=== PATIENT | female | born 1940 | race Caucasian/White ===

== ENCOUNTER 2020-04-05 06:38 | Outpatient (CLI) | payer MEDICARE, SELFPAY ==
--- NOTE | ~2020-04-05 | CT_ITS ---
EXAMINATION: CT abdomen pelvis wo/w con DATE: 04/05/2020 07:45 INDICATION: Breast hematuria TECHNIQUE: Computed tomography (CT) of the abdomen and pelvis was performed without and with 130 cc O mnipaque 350 intravenous contrast. The dose-length product was 815.15 mGy-cm. Automated exposure cont rol and iterative reconstruction technique were employed. COMPARISON: No prior studies for comparison. FINDINGS: Lung bases are unremarkable. No significant pleural or pericardial effusion. Heart size is normal. Small hiatal hernia. There are gallstones. Calcified granulomas of the spleen. No renal/urete ral stones. Nonobstructive bowel gas pattern. Normal appendix. Colonic diverticulosis without evidenc e for diverticulitis. Small fat-containing left inguinal hernia. Bladder is unremarkable. Liver, spleen, pancreas, adrenal glands and kidneys are unremarkable. Ureters are normal in course an d caliber. There is mild thickening of the endometrium. Recommend correlation with ultrasound. IMPRESSION: 1. No acute abdominal abnormality. 2: Thickening of the endometrium. Recommend correlation with ultrasound. 3: Cholelithiasis. Reviewed, dictated and finalized at location A.
--- NOTE | ~2020-04-05 | US_ITS ---
EXAMINATION: US pelvic complete DATE: 04/05/2020 07:57 INDICATION: Postmenopausal bleeding. Comparison:No prior studies for comparison. TECHNIQUE: Multiple transabdominal sonographic images of the pelvis performed. FINDINGS: The uterus measures 6.4 x 4 x 2.6 cm. The endometrial complex measures 8 mm. The ovaries are not visualized. There is no free fluid in the pelvis. There are no abnormal masses seen on either side. IMPRESSION: 1. Thickened endomtrial complex. The differential diagnosis includes endometrial hyperplasia, polyp a nd carcinoma. Biopsy is recommended. Reviewed, dictated and finalized at location A. IMPRESSION: 1. Thickened endomtrial complex. The differential diagnosis includes endometria l hyperplasia, polyp and carcinoma. Biopsy is recommended.
[2020-04-05 07:19] LABS: Estimated Glomerular Filt Rate > 60
== END 2020-04-05 06:39 | disposition home or self-care (01) ==
PROVIDERS: PCP Physician Assistant; Visit Provider Physician Assistant
DX: R31.0 Gross hematuria (principal); N95.0 Postmenopausal bleeding; R93.89 Abnormal findings on diagnostic imaging of other specified body structures; K80.20 Calculus of gallbladder without cholecystitis without obstruction
CPT/HCPCS: 36415; 74178; 76856; Q9967

== ENCOUNTER 2020-04-18 07:17 | Outpatient (CLI) | payer MEDICARE, SELFPAY | END 2020-04-18 07:18 | disposition home or self-care (01) | PROVIDERS: PCP Physician Assistant; Visit Provider Obstetrics & Gynecology | DX: Z01.812 Encounter for preprocedural laboratory examination (principal); N95.0 Postmenopausal bleeding; Z20.828 Contact with and (suspected) exposure to other viral communicable diseases | CPT/HCPCS: 36415; 80048; 87635; 93005; C9803; U0003 ==

== ENCOUNTER 2020-04-18 08:40 | Outpatient (CLI) | payer MEDICARE, SELFPAY ==
--- NOTE | 2020-04-18 08:45 | ECG_ITS ---
Measurements Intervals [place] Rate: 45 P: 39 AL: 205 QRS: -16 QRSD: 90 T: 9 QT: 432 QTc: 377 Interpretive Statements SINUS BRADYCARDIA VOLTAGE CRITERIA FOR LVH DELAYED PRECORDIAL R/S TRANSITION BORDERLINE T WAVE ABNORMALITY- INFERIOR LEADS BASELINE ARTIFACT- I, II, III, AVR, AVL, AVF ABNORMAL ECG Electronically Signed On 04-18-2020 9:23:15 CDT by Isak Hassan D.O.
[2020-04-18 09:38] LABS: Blood Urea Nitrogen 9 mg/dL (7-17); Calcium 9.6 mg/dL (8.4-10.2); Carbon Dioxide 30 mmol/L (22-30); Chloride 104 mmol/L (98-107); Estimated Glomerular Filt Rate > 60; Glucose 124 mg/dL (65-105); Potassium 4.3 mmol/L (3.4-5.0); Sodium 139 mmol/L (137-145)
== END 2020-04-18 08:41 | disposition home or self-care (01) ==
LOC: ANHSURGERY 08:45
PROVIDERS: Anesthesiology; PCP Physician Assistant; Visit Provider Obstetrics & Gynecology
DX: E11.9 Type 2 diabetes mellitus without complications (principal); I10 Essential (primary) hypertension
CPT/HCPCS: 36415; 80048; 93005

== ENCOUNTER 2020-04-23 00:40 | Outpatient (CLI) | payer MEDICARE, SELFPAY ==
[2020-04-23 16:46] LABS: SARS-CoV-2 RNA PCR Negative
== END 2020-04-23 00:41 | disposition home or self-care (01) ==
LOC: ANHCOVIDDT 00:40
PROVIDERS: PCP Physician Assistant; Visit Provider Obstetrics & Gynecology
DX: Z01.818 Encounter for other preprocedural examination (principal); Z11.59 Encounter for screening for other viral diseases; N95.0 Postmenopausal bleeding
CPT/HCPCS: 87635; C9803; U0003

== ENCOUNTER 2020-04-26 00:47 | Day surgery (SDC) | payer MEDICARE, SELFPAY ==
[2020-04-13 14:41] VITALS: BMI 26.9
--- NOTE | 2020-04-14 15:08 | PC.NURSE ---
PT STATES NO CHANGE IN HEALTH HX. NEW DATE AND TIME GIVEN
--- NOTE | 2020-04-20 13:13 | PC.NURSE ---
PT NOTIFIED OF DATE AND TIME CHANGE. NO CHANGE IN HEALTH HX
[2020-04-26 06:12] VITALS: BP 147/65; PULSE 53; RESP 20; TEMP 36.5; O2SAT 98
--- NOTE | 2020-04-26 06:36 | PM.IMHP ---
H&P: HPI History of Present Illness Chief complaint: Post Menopausal Bleeding Narrative: Aubrie Pink is a 80 year old female who presented as a consult. She presented to her PCP w/ vaginal spotting and was found to have a thickened endometrium measuring 8mm with fluid. She reports pink when wiping for the last few days. She has been wearing a pad and also noted a light amount of dark colored discharge. No cramping/pelvic pain. Review of Systems Constitutional: Constitutional: Denies body ache(s) and Denies chills Cardiovascular: Cardiovascular: Denies chest pain and Denies palpitations Respiratory: Respiratory: Denies cough and Denies dyspnea Gastrointestinal: Gastrointestinal: Denies abdominal pain, Denies nausea and Denies vomiting Genitourinary: Genitourinary: Denies dysuria and Denies vaginal discharge Neurologic: Denies headache(s) and Denies numbness Psychiatric: Psychiatric: Denies anxiety Meds Home Medications and Allergies Home Medications Medication Instructions Recorded Confirmed Type amlodipine 2.5 mg PO DAILY 04/13/20 04/20/20 History atorvastatin 20 mg PO HS 04/13/20 04/20/20 History levothyroxine 75 mcg PO DAILY 04/13/20 04/20/20 History lisinopril 40 mg DAILY 04/13/20 04/20/20 History metformin 500 mg PO HS 04/13/20 04/20/20 History nebivolol [Bystolic] 5 mg PO HS 04/13/20 04/20/20 History Allergies Allergy/AdvReac Type Severity Reaction Status Date / Time No Known Allergies Allergy Verified 04/20/20 13:11 Exam Const: General: comfortable and no acute distress Resp: Effort & Inspection: normal respiratory effort Cardio: Rate: regular rate GI: Inspection: non-distended GI Palp: Yes Soft to palpation and No Tenderness to palpation present (GI) : Other: deferred to OR Skin: General skin exam: normal color Neuro: Speech: normal speech Assessment and Plan Assessment and plan (1) Postmenopausal bleeding: Code(s): N95.0 - Postmenopausal bleeding Status: Acute Assessment and Plan: - US showed ET of 8mm w/ possible fluid - Will proceed with HSC/D&C - Will also perform vaginal biopsy due to ulceration/irritation noted - If biopsies negative; will prescribe vaginal estrogen cream
[2020-04-26] MEDS: LACTATED RINGERS 1,000 ML 30 ML IV CONT (06:45)
--- NOTE | 2020-04-26 07:00 | WPDANESEPPF ---
Anes - Initial Pre Proc Eval Procedure: Operation Date: 04/26/20 07:30 Proposed Procedures p Hysteroscopy, Dilation and Curettage - Raine Sam MD Date/Time: 04/26/20 07:00 Surgeon: Raine Sam MD Pre Op Diagnosis: Post Menopausal Bleeding Patient Data Age: 80 Gender: F Height: 5 ft 1 in Weight: 64.5 kg Allergies Allergy/AdvReac Type Severity Reaction Status Date / Time No Known Allergies Allergy Verified 04/20/20 13:11 Home Medications Medication Instructions Recorded Confirmed Type amlodipine 2.5 mg PO DAILY 04/13/20 04/20/20 History atorvastatin 20 mg PO HS 04/13/20 04/20/20 History levothyroxine 75 mcg PO DAILY 04/13/20 04/20/20 History lisinopril 40 mg DAILY 04/13/20 04/20/20 History metformin 500 mg PO HS 04/13/20 04/20/20 History nebivolol [Bystolic] 5 mg PO HS 04/13/20 04/20/20 History Patient hx anesthesia problems: none Family hx anesthesia problems: none [facility] Past Medical History Medical History Diabetes Hyperlipidemia Hypertension Hypothyroid Anes - Eval Final PreProcedure Day of Procedure 04/26/20 07:00 Patient weight: overweight Heart: regular rate and rhythm Lungs: clear to auscultation Airway: Mallampati scale class II Neurological: other (alert) Last oral intake: >/= 8 hours ASA classification: III Emergent: no Anesthetic plan: proceed Anesthesia type and monitoring: general GIVS and standard monitoring Informed Consent: The patient's anesthetic plan and its attendant risks and benefits were discussed with the patient/family/POA. Questions were solicited and answers provided to the satisfaction of the patient/family/POA.
[2020-04-26] MEDS: KETOROLAC 30 MG/ML VIAL (*BKC) IV PUSH (07:28)
[2020-04-26 08:04] VITALS: BP 129/49; PULSE 49; RESP 14; O2SAT 94
--- NOTE | 2020-04-26 08:06 | PM.PROC ---
Procedure Note - Detailed Date of procedure: 04/26/20 Pre-op diagnosis: Post Menopausal Bleeding Post-op diagnosis: same Procedure performed: Hysteroscopy, dilation and curettage and vaginal biopsy Description of procedure: The patient was taken operating room where she was placed under mac sedation. She was then prepped and draped in the usual sterile fashion in the dorsal lithotomy position with her legs in stirrups. A time-out was performed and no antibiotics were indicated. A bivalve speculum was then placed within the vagina and the anterior lip of the cervix was grasped with a single-tooth tenaculum. The cervix was serially dilated to allow for the hysteroscope, the cervix was initially noted to be stenotic. The hysteroscope was advanced inside the uterus and the cavity was easily distended. A polyp arising from the fundus was noted. The hysteroscope was removed. A gentle curettage was performed with return of significant endometrial tissue. All instruments were then removed from the vagina and we proceeded with the vaginal biopsy. Decision was made to biopsy an area on the left labia near the fourchette or at approximately 5 o'clock. Using approximately 3 cc lidocaine without epinephrine the area was numbed. Using pickups and curved mayos a small section of vaginal tissue was removed. Using 3 0 Vicryl on an SH a U-stitch was placed and good hemostasis was noted. Sponge, lap, needle, and instrument counts were correct at the end of the procedure. The patient was awoken from sedation and taken to recovery in a stable condition. Anesthesia: MAC Surgeon: Raine Sam MD Estimated blood loss (mL): 5 Drains: No Packing: No Pathology: yes (endometrial curettings and vaginal biopsy (left labia/fourchette area)) Complications: No immediate complications Condition: stable Disposition: same day Findings: Stenotic cervix, thickened endometrial tissue with a possible fundal polyp/fibroid, vaginal biopsy obtained from the left labia minora/fourchette area (5 o'clock).
[2020-04-26 08:30] VITALS: BP 141/49; PULSE 45; RESP 14; O2SAT 94
[2020-04-26 09:00] VITALS: BP 159/44; PULSE 44; RESP 14
== END 2020-04-26 09:19 | disposition home or self-care (01) ==
PROVIDERS: PCP Physician Assistant; Visit Provider Obstetrics & Gynecology
PROC: 0U5B8ZZ Destruction of Endometrium, Via Natural or Artificial Opening Endoscopic (ICD-10-PCS; CPT 58563; principal; 2020-04-26 07:30)
DX: C54.1 Malignant neoplasm of endometrium (principal); N84.2 Polyp of vagina; I10 Essential (primary) hypertension; E78.5 Hyperlipidemia, unspecified; E11.9 Type 2 diabetes mellitus without complications; E03.9 Hypothyroidism, unspecified; Z79.84 Long term (current) use of oral hypoglycemic drugs
CPT/HCPCS: 58558; 88305; A9270; J1885; J2704; J3010; J7030; J7120

== ENCOUNTER 2020-07-21 10:34 | Outpatient (CLI) | payer MEDICARE, SELFPAY ==
--- NOTE | ~2020-07-21 | PE_ITS ---
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 9.029 mCi of 18-fluorodeoxyglucose (18-FDG) was adminis tered i.v. Low dose computed tomography (CT) images were acquired from the base of the brain to the p roximal thighs for attenuation correction and anatomic localization. Positron emission tomography (PE T) images were acquired in the same distribution beginning 56 minutes after injection. The dose-lengt h product (DLP) was 376.23 mGy-cm. COMPARISON: CT, 04/05/2020 FINDINGS: Head/neck: No abnormal FDG uptake is identified. Minimal FDG activity in the anterior neck musculatur e is likely physiologic given the absence of suspicious CT correlate. Chest: No abnormal FDG uptake is identified. There is mild dependent atelectasis. No focal airspace o pacities are identified. There is no pleural effusion or pneumothorax. No pathologically enlarged tho racic lymph nodes are identified. Cardiomegaly is noted. There is calcified coronary artery atheroscl erosis. Abdomen/pelvis/proximal thighs: No abnormal FDG uptake is identified. Physiologic FDG activity is pre sent in the bowel and urinary tract. There are changes of interval hysterectomy. Stones are present i n the nondistended gallbladder. The liver, spleen, pancreas, and adrenal glands are normal. The kidne ys are unremarkable. No pathologically enlarged abdominal or pelvic lymph nodes are identified. There is no free intraperitoneal gas or evidence of bowel obstruction. Colonic diverticulosis is present w ithout evidence of diverticulitis. There is an approximately 7.0 x 2.3 cm area of complex fluid atten uation in the left pelvis without FDG uptake. Musculoskeletal: No abnormal FDG uptake is identified. There is mild cervical and moderate lumbar spo ndylosis. IMPRESSION: 1. Changes of interval hysterectomy without evidence of metastatic disease. 2. New complex fluid collection of the left pelvis without FDG uptake, most consistent with postsurgi fanny change such as seroma, resolving hematoma, or peritoneal inclusion cyst. Reviewed, dictated and finalized at location A. IMPRESSION: 1. Changes of interval hysterectomy without evidence of metastatic disease. 2. New complex fluid collection of the left pelvis without FDG uptake, most con sistent with postsurgical change such as seroma, resolving hematoma, or periton eal inclusion cyst.
[2020-07-21 11:09] LABS: Glucose Point of Care 114 (65-105)
== END 2020-07-21 10:35 | disposition home or self-care (01) ==
PROVIDERS: PCP Physician Assistant; Visit Provider Internal Medicine Hematology & Oncology
DX: C54.1 Malignant neoplasm of endometrium (principal)
CPT/HCPCS: 78815; A9552

== ENCOUNTER 2020-07-25 00:57 | Outpatient (CLI) | payer MEDICARE, SELFPAY ==
[2020-07-25 19:34] LABS: SARS-CoV-2 RNA PCR Negative
== END 2020-07-25 00:58 | disposition home or self-care (01) ==
LOC: ANHCOVIDDT 00:57
PROVIDERS: PCP Physician Assistant; Visit Provider Internal Medicine Gastroenterology
DX: Z01.812 Encounter for preprocedural laboratory examination (principal); Z20.828 Contact with and (suspected) exposure to other viral communicable diseases
CPT/HCPCS: 87635; C9803; U0003

== ENCOUNTER 2020-07-27 02:52 | Day surgery (SDC) | payer MEDICARE, SELFPAY ==
[2020-07-22 09:43] VITALS: BMI 26.2
--- NOTE | 2020-07-25 14:39 | P.PNAN_ITS ---
Anes - Initial Pre Proc Eval Procedure: Operation Date: 07/27/20 10:30 Proposed Procedures p Colonoscopy - Zeyad Pisano MD Date/Time: 07/25/20 14:39 Surgeon: Zeyad Pisano MD Pre Op Diagnosis: diarrhea Patient Data Age: 80 Gender: F Height: 1.52 m Weight: 61 kg Allergies Allergy/AdvReac Type Severity Reaction Status Date / Time No Known Allergies Allergy Verified 07/27/20 10:33 Home Medications Medication Instructions Recorded Confirmed Type Bystolic 5 mg PO HS 04/13/20 07/22/20 History amlodipine 2.5 mg PO DAILY 04/13/20 07/22/20 History atorvastatin 20 mg PO HS 04/13/20 07/22/20 History levothyroxine 75 mcg PO DAILY 04/13/20 07/22/20 History lisinopril 40 mg DAILY 04/13/20 07/22/20 History metformin 500 mg PO HS 04/13/20 07/22/20 History calcium polycarbophil [FiberCon] 1,250 mg PO BID 07/22/20 07/22/20 History Patient hx anesthesia problems: none Family hx anesthesia problems: none PMFSH Family History Family History (Updated 07/20/20 @ 12:44 by Anish Lara MD) Sibling Cancer Sibling Cancer Father Cancer Social History Social History (System 04/28/20 @ 16:17 by Sarika Biggs) Smoking packs per day: 0.5 Smoking cigarettes per day: 10.0 Years smoked: 1 Smoking pack-years: 0.50 Smoking status: Former smoker Tobacco type: cigarettes Gender identity (if verbalized by the patient): Female Spiritual care concerns: Yes ([employer] [place]) Anes - Eval Final PreProcedure Day of Procedure 07/25/20 14:39 Patient weight: overweight Heart: regular rate and rhythm Lungs: clear to auscultation and normal air movement Airway: Mallampati scale class II Neurological: alert and oriented Last oral intake: >/= 8 hours ASA classification: III Emergent: no Anesthetic plan: proceed Anesthesia type and monitoring: general GIVS and standard monitoring Informed Consent: The patient's anesthetic plan and its attendant risks and benefits were discussed with the patient/family/POA. Questions were solicited and answers provided to the satisfaction of the patient/family/POA.
[2020-07-27 10:35] VITALS: BP 150/65; PULSE 51; RESP 18; TEMP 36.8; O2SAT 99
--- NOTE | 2020-07-27 10:41 | P.CONGI_ITS ---
Assessment and Plan Assessment and plan (1) Chronic diarrhea: Code(s): K52.9 - Noninfective gastroenteritis and colitis, unspecified Status: Acute Assessment and Plan: Patient has chronic diarrhea suspicious for irritable bowel syndrome. Plan is to try fiber supplements. A colonoscopy will be arranged particularly because of history of endometrial cancer. If diarrhea. Persist otherwise stool culture will be obtained and further recommendations subsequently. (2) Endometrial cancer: Code(s): C54.1 - Malignant neoplasm of endometrium Status: Acute GI Consult Note Consult date/time: 07/27/20 10:41 HPI: Aubrie Pink is a 80 year old female Seen in evaluation at the request of EMPERATRIZ Marcelo pt also followed by oncology, Dr Lara. Patient reports having diarrhea for several years. She has a new diagnosis of endometrial cancer for which she underwent a hysterectomy. Her diarrhea appears to be worse after eating. She reports loose stool daily perhaps 3 or 4 day this is improved on taking fiber supplements. She denies any blood in her stools. Diarrhea rarely occurs at night. She has had no weight loss. Family history is noncontributory. she has never had a colonoscopy previously Review of Systems Review of Systems: All systems reviewed & are unremarkable except as noted in HPI and below PMFSH Past Medical History Medical History Diabetes Hyperlipidemia Hypertension Hypothyroid Family History Family History (Updated 07/20/20 @ 12:44 by Anish Lara MD) Sibling Cancer Sibling Cancer Father Cancer Social History Social History Smoking packs per day: 0.5 Smoking cigarettes per day: 10.0 Years smoked: 1 Smoking pack-years: 0.50 Smoking status: Former smoker Tobacco type: cigarettes Gender identity (if verbalized by the patient): Female Spiritual care concerns: Yes ([employer]) Meds Home Medications and Allergies Home Medications Medication Instructions Recorded Confirmed Type Bystolic 5 mg PO HS 04/13/20 07/22/20 History amlodipine 2.5 mg PO DAILY 04/13/20 07/22/20 History atorvastatin 20 mg PO HS 04/13/20 07/22/20 History levothyroxine 75 mcg PO DAILY 04/13/20 07/22/20 History lisinopril 40 mg DAILY 04/13/20 07/22/20 History metformin 500 mg PO HS 04/13/20 07/22/20 History calcium polycarbophil [FiberCon] 1,250 mg PO BID 07/22/20 07/22/20 History Allergies Allergy/AdvReac Type Severity Reaction Status Date / Time No Known Allergies Allergy Verified 07/27/20 10:33 Exam Narrative: Exam Narrative: physical exam reveals patient to be alert. Vital signs stable. HEENT exam unremarkable. She is anicteric. Lungs are clear to auscultation and percussion. Heart is without murmur or extra sounds. Abdominal exam bowel sounds are present soft nontender with no organomegaly. Digital external rectal exam is normal.
[2020-07-27] MEDS: LACTATED RINGERS 1,000 ML 150 ML IV CONT (10:56)
[2020-07-27 11:03] LABS: Glucose Point of Care 112 (65-105)
[2020-07-27 11:32] VITALS: BP 110/45; PULSE 51; RESP 16; O2SAT 97
[2020-07-27 11:43] VITALS: BP 109/45; PULSE 47; RESP 17; O2SAT 96
[2020-07-27 11:53] VITALS: BP 122/52; PULSE 51; RESP 18; O2SAT 98
== END 2020-07-27 12:11 | disposition home or self-care (01) ==
PROVIDERS: PCP Physician Assistant; Visit Provider Internal Medicine Gastroenterology
PROC: 0DJD8ZZ Inspection of Lower Intestinal Tract, Via Natural or Artificial Opening Endoscopic (ICD-10-PCS; CPT 45378; principal; 2020-07-27 10:30)
DX: K52.9 Noninfective gastroenteritis and colitis, unspecified (principal); K57.30 Diverticulosis of large intestine without perforation or abscess without bleeding; K64.8 Other hemorrhoids; C54.1 Malignant neoplasm of endometrium; E11.9 Type 2 diabetes mellitus without complications; I10 Essential (primary) hypertension; E03.9 Hypothyroidism, unspecified; E78.5 Hyperlipidemia, unspecified; Z87.891 Personal history of nicotine dependence; Z79.84 Long term (current) use of oral hypoglycemic drugs; Z79.899 Other long term (current) drug therapy
CPT/HCPCS: 45378; J2704; J7120

== ENCOUNTER 2020-08-26 07:47 | Outpatient (CLI) | payer MEDICARE, SELFPAY ==
[2020-08-26 08:21] LABS: INR 0.9; Prothrombin Time 11.8 Seconds (11.1-14.7)
[2020-08-26 08:22] LABS: Partial Thromboplastin Time 23.8 SECONDS (22.3-36.8)
== END 2020-08-26 07:48 | disposition home or self-care (01) ==
LOC: ANHSURGERY 07:50
PROVIDERS: PCP Physician Assistant; Visit Provider Surgery
DX: C54.1 Malignant neoplasm of endometrium (principal); Z01.812 Encounter for preprocedural laboratory examination
CPT/HCPCS: 36415; 85610; 85730

== ENCOUNTER 2020-08-29 01:06 | Outpatient (CLI) | payer MEDICARE, SELFPAY ==
[2020-08-29 18:01] LABS: SARS-CoV-2 RNA PCR Negative
== END 2020-08-29 01:07 | disposition home or self-care (01) ==
LOC: ANHCOVIDDT 01:08
PROVIDERS: PCP Physician Assistant; Visit Provider Surgery
DX: Z01.812 Encounter for preprocedural laboratory examination (principal); Z20.828 Contact with and (suspected) exposure to other viral communicable diseases
CPT/HCPCS: 87635; C9803; U0003

== ENCOUNTER 2020-08-31 01:27 | Day surgery (SDC) | payer MEDICARE, SELFPAY ==
[2020-08-25 12:32] VITALS: BMI 24.4
--- NOTE | ~2020-08-31 | XR_ITS ---
EXAMINATION: XR fl guide central line place DATE: 08/31/2020 16:18 INDICATION: Port placement. TECHNIQUE: 2 intraoperative fluoroscopic views of the chest were obtained. I was not present. Fluoros copy exposure time was 38 seconds. COMPARISON: PET CT 07/21/2020 FINDINGS: There is a right internal jugular port with tip in right atrium. IMPRESSION: 1. Port tip in right atrium. Reviewed, dictated and finalized at location A.
--- NOTE | ~2020-08-31 | XR_ITS ---
EXAMINATION: XR chest port-a-cath/central DATE: 08/31/2020 16:28 INDICATION: Port placement. TECHNIQUE: A single frontal view of the chest was obtained. COMPARISON: PET/CT 07/21/2020 FINDINGS: There is mild atelectasis in left perihilar region. No pleural effusion or pneumothorax. Th e heart size is normal. Calcified right hilar lymph nodes are consistent with old granulomatous disea se. There is a right internal jugular port with tip in superior vena cava. IMPRESSION: 1. Port tip in superior vena cava. Reviewed, dictated and finalized at location A.
[2020-08-31] MEDS: LACTATED RINGERS 1,000 ML 30 ML IV CONT (11:33)
[2020-08-31] MEDS: KETOROLAC 15 MG/ML VIAL (*BKC) IV PUSH (11:35)
[2020-08-31 11:38] LABS: Glucose Point of Care 98 (65-105)
--- NOTE | 2020-08-31 12:09 | P.PNAN_ITS ---
Anes - Initial Pre Proc Eval Procedure: Operation Date: 08/31/20 14:00 Proposed Procedures p Insertion Juarez Cath - Javad Delgadillo MD Date/Time: 08/31/20 12:09 Surgeon: Javad Delgadillo MD Pre Op Diagnosis: Endometrial Ca Patient Data Age: 80 Gender: F Height: 5 ft Weight: 57.4 kg Allergies Allergy/AdvReac Type Severity Reaction Status Date / Time No Known Allergies Allergy Verified 08/31/20 11:38 Home Medications Medication Instructions Recorded Confirmed Type amlodipine 5 mg PO DAILY 04/13/20 08/31/20 History atorvastatin 20 mg PO HS 04/13/20 08/31/20 History levothyroxine 75 mcg PO DAILY 04/13/20 08/31/20 History lisinopril 40 mg PO BID 04/13/20 08/31/20 History metformin 500 mg PO HS 04/13/20 08/31/20 History calcium polycarbophil [FiberCon] 1,250 mg PO BID 07/22/20 08/31/20 History Laboratory Tests 08/31/20 11:32 POC Capillary Glucose 98 mg/dl mg/dl (65-105) Patient hx anesthesia problems: none Family hx anesthesia problems: none PMFSH Family History Family History (Updated 07/20/20 @ 12:44 by Anish Lara MD) Sibling Cancer Sibling Cancer Father Cancer Social History Social History Smoking packs per day: 0.5 Smoking cigarettes per day: 10.0 Years smoked: 1 Smoking pack-years: 0.50 Smoking status: Never smoker Tobacco type: cigarettes Living arrangements: alone Gender identity (if verbalized by the patient): Female Spiritual care concerns: No Anes - Eval Final PreProcedure Day of Procedure 08/31/20 12:09 Patient weight: normal Heart: regular rate and rhythm Lungs: clear to auscultation Airway: Mallampati scale class II Neurological: alert and oriented Last oral intake: >/= 8 hours ASA classification: III Anesthetic plan: proceed Anesthesia type and monitoring: general GIVS and standard monitoring Informed Consent: The patient's anesthetic plan and its attendant risks and b enefits were discussed with the patient/family/POA. Questions were solicited and answers provided to the satisfaction of the patient/family/POA.
--- NOTE | 2020-08-31 12:18 | PM.HPGS ---
History of Present Illness History of Present Illness Consent: Risks, benefits, and alternatives Of placement of a Port-A-Cath have been discussed and questions answered. Patient agrees to proceed with procedure. Chief complaint: Endometrial Ca Narrative: Aubrie Pink is a 80 year old female who recently had some vaginal bleeding and subsequently a D&C followed by the diagnosis of endometrioid adenocarcinoma. Therefore a in [place] she underwent a total hysterectomy and bilateral salpingo oophorectomy on June 21, 2020. 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 Therefore, she is planning to undergo both radiation and chemotherapy. Dr. Solomon loaiza is her medical oncologist and is planning to proceed with some carboplatin and Taxol once the wrists 3 weeks for 6 cycles. She is referred at this time for placement of a Port-A-Cath. She has had no previous history of surgery on her neck or chest. She is feeling well today without a fever. She is not allergic to any specific medications. Review of Systems Constitutional: Constitutional: Reports no additional constitutional complaints, Reports fatigue and Denies malaise Eyes: Eyes: Denies change in vision and Denies loss of vision ENT: Reports Normal hearing present, Denies change in voice, Denies dizziness, Denies hoarseness and Denies sore throat Cardiovascular: Cardiovascular: Denies chest pain, Denies leg edema and Denies dyspnea Comments: Patient has a history of controlled hypertension on medications. Patient also has history of hyperlipidemia and is on a statin. Respiratory: Respiratory: Denies cough, Denies dyspnea and Denies wheezing Gastrointestinal: Gastrointestinal: Denies hematochezia, Denies change in bowel habits and Denies heartburn Genitourinary: Genitourinary: Denies urinary frequency and Denies urinary incontinence Comments: History of recent RIVER & BSO secondary to endometrial carcinoma. Now planning for chemotherapy and radiation. Neurologic: Reports Normal hearing present, Denies confusion, Denies dizziness, Denies loss of vision, Denies memory loss and Denies seizure-like activity Psychiatric: Psychiatric: Denies confusion, Denies depression and Denies memory loss Endocrine: Endocrine: Denies cold intolerance and Reports fatigue Comments: Patient has a history of controlled type 2 diabetes mellitus on metformin. Hematologic/Lymphatic: Hematologic/Lymphatic: Denies easy bleeding and Denies easy bruising Allergic/Immunologic: Allergic/Immunologic: Denies wheezing PMFSH Past Medical History Medical History (Updated 08/31/20 @ 12:27 by Javad Delgadillo MD) Diabetes Hyperlipidemia Hypertension (Unknown) Hypothyroid Surgical History Surgical History History of hysterectomy with bilateral oophorectomy Family History Family History Sibling Cancer Sibling Cancer Father Cancer Social History Social History Smoking packs per day: 0.5 Smoking cigarettes per day: 10.0 Years smoked: 1 Smoking pack-years: 0.50 Smoking status: Never smoker Tobacco type: cigarettes Living arrangements: alone Gender identity (if verbalized by the patient): Female Spiritual care concerns: No Meds Home Medications and Allergies Home Medications Medication Instructions Recorded Confirmed Type amlodipine 5 mg PO DAILY 04/13/20 08/31/20 History atorvastatin 20 mg PO HS 04/13/20 08/31/20 History levothyroxine 75 mcg PO DAILY 04/13/20 08/31/20 History lisinopril 40 mg PO BID 04/13/20 08/31/20 History metformin 500 mg PO HS 04/13/20 08/31/20 History calcium polycarbophil [FiberCon] 1,250 mg PO BID 07/22/20 08/31/20 History Allergies Allergy/AdvReac Type Severity Reaction Status Date / Time No Known Allergies Allergy Verified 08/31
--- NOTE | 2020-08-31 14:49 | WPDHPUPDATE1 ---
History and Physical Update Update Date/Time: 08/31/20 14:49 History and Physical has been reviewed, including an updated exam of the patient. There are NO changes in the patient's condition. Risks, benefits, and alternatives have been discussed and questions answered. Patient agrees to proceed with procedure.
[2020-08-31] MEDS: ceFAZolin 2 GM/D5W 50 ML 2 GM/50 ML BAG IVPB (15:09)
[2020-08-31] MEDS: HEPARIN SODIUM 5,000 UNITS/ML VIAL 5000 UNITS IRRIGATION (15:48)
[2020-08-31] MEDS: BUPIVACAINE/EPINEPHRINE 0.5% 10 ML VIAL 20 ML INFILTRATE (15:51)
--- NOTE | 2020-08-31 16:07 | PM.PROC ---
Procedure Note - Detailed Date of procedure: 08/31/20 Pre-op diagnosis: Endometrial Ca Post-op diagnosis: same Procedure performed: Ultrasound-guided placement of Port-A-Cath Description of procedure: Patient was seen and marked in the pre-op area prior to coming to the OR. Patient was brought to the operating room. She was placed supine on the operating table and general IV sedation was induced. The nurse service unit operator oil well provided oxygen and IV sedation. Patient's head was carefully turned to the left side while in the supine position and the patient's entire neck and anterior chest on both sides was prepped and draped in the usual sterile fashion. Following this the appropriate time-out was completed confirming procedure and patient. We confirmed that all the needed equipment was present in the room. Following this the ultrasound probe was draped into the field and using the probe we carefully identified the carotid artery and jugular vein on the right neck. I marked the skin directly over the Rt. internal jugular vein and an image was saved to [employer]. Following this, using the continuous ultrasound guidance, a Cook needle was placed through the skin into this vein. I then was able to draw back good dark blood. Once this was completed a guidewire using a J-tip was advanced through the needle and then the needle and the guidewire cover were withdrawn. C-arm fluoroscopy was used to confirm that the guidewire was nicely in the venous system. Once this was confirmed with the C - arm I preceded on by making the pocket for the port on the patient's anterior right chest approximately 3 centimeters below the clavicle overlying the chest wall. Local anesthetic was infiltrated into the skin where there was a transverse incision marked out. Incision was made and we made a pocket inferior to the incision with just a little dissection superior. The low-profile port was tried in the pocket and seemed to fit well. Following this the catheter which had been placed on a tunneling device was tunneled from the port site on the anterior right chest up to the right neck where a small incision had been made with an #11 blade knife. Then the catheter was pulled through so that we would have 15 centimeters to put into the central venous system once the dilation took place. Following this we placed the dilator and sheath over the guidewire in the jugular vein and carefully dilated the tract into the central venous system. The guidewire and dilator were then removed, carefully covering the end of the sheath to prevent air embolus. The end of the catheter which had been cut off straight across and the tip checked was then inserted into the sheath and into the neck. I then carefully pulled the 2 arms of the tear-away sheath away as the materials assistant held the catheter in position with a DeBakey forceps. Following this we checked the position of the catheter with C-arm fluoroscopy confirming that the tip seemed to be in the distal superior vena cava near the junction with the right atrium. I felt that it was in good position and so the rest of the catheter was pulled down toward the feet into the port site. We then measured to the appropriate position to cut the catheter to attach it to the port stem. Then the connector sealing device for the catheter port was placed onto the catheter and then the catheter cut to the appropriate length and inserted onto the stem of the port. Then the connector was advanced onto the stem over the catheter sealing it to the port. A single 3- 0 Prolene suture was also used during this to suture the connector to the port and to the underlying musculature. Following this at one other site the port was sutured to the underlying musculature with the 3-0 Proline. Both prior to connecting the catheter to the port and then using a straight Marvin needle following this connection, the port was aspirated of good dark blood and flushed with heparinized saline to keep the c
[2020-08-31 16:14] VITALS: BP 117/50; PULSE 61; RESP 12; O2SAT 97
[2020-08-31 16:35] VITALS: BP 149/66; PULSE 65; RESP 16
[2020-08-31 16:36] LABS: Glucose Point of Care 105 (65-105)
--- NOTE | 2020-08-31 16:49 | SUR.PHASEII ---
1625 chest xray done,dr crowley saw xray and in proper placement without pneumothorax.
[2020-08-31 17:00] VITALS: BP 142/58; PULSE 64; RESP 16
== END 2020-08-31 17:20 | disposition home or self-care (01) ==
PROVIDERS: PCP Physician Assistant; Referring Provider Internal Medicine Hematology & Oncology; Visit Provider Surgery
PROC: (CPT 36561; principal; 2020-08-31 14:00)
DX: C54.1 Malignant neoplasm of endometrium (principal); Z90.710 Acquired absence of both cervix and uterus; Z90.79 Acquired absence of other genital organ(s); Z90.722 Acquired absence of ovaries, bilateral; E11.9 Type 2 diabetes mellitus without complications; E78.5 Hyperlipidemia, unspecified; I10 Essential (primary) hypertension; E03.9 Hypothyroidism, unspecified; Z80.9 Family history of malignant neoplasm, unspecified; Z87.891 Personal history of nicotine dependence; Z79.84 Long term (current) use of oral hypoglycemic drugs
CPT/HCPCS: 36561; 77001; C1788; J0690; J1644; J1885; J2405; J2704; J3010; J7030; J7120

== ENCOUNTER 2020-12-23 07:43 | Outpatient (CLI) | payer MEDICARE, SELFPAY ==
--- NOTE | ~2020-12-23 | CT_ITS ---
EXAMINATION: CT brain wo/w con EXAM DATE: 12/23/2020 08:20 INDICATION: Altered mental status, unspec. Uterine cancer. Status post chemotherapy and radiation. TECHNIQUE: Spiral CT of the head was performed without contrast. Axial, coronal and sagittal images were reviewed. Patient was then injected with 100 cc Omnipaque 350 intravenous contrast and reimaged. Postcontrast axial, coronal, sagittal reformatted images reviewed. The dose-length product (DLP) f or this examination was 1059.33 mGy-cm. The exposure was tailored according to patient size, and ite rative reconstruction (ASIR) was used as additional dose reduction technique. There is no prior stud y for comparison. FINDINGS: There is no acute intraparenchymal hemorrhage. No evidence of intraparenchymal brain mass lesion. No evidence of acute infarction. Please note that initial head CT has limited sensitivity f or small or acute infarctions. There is moderate periventricular and subcortical hypodensity, nonspec ific but probably related to small vessel ischemic disease. There is mild prominence of the sulci a nd ventricles related to cerebral atrophy. There is intracranial carotid arteriosclerosis. There a re no extra-axial collections. There is no mass effect or midline shift. Patient has had bilateral ocular lens surgery. Soft tissue is unremarkable. The visualized sinuses and mastoid air cells are well aerated. IMPRESSION: 1. No acute intracranial findings or metastatic disease. 2. Chronic age related findings. Reviewed, dictated and finalized at location A. ET CASTER
== END 2020-12-23 07:44 | disposition home or self-care (01) ==
PROVIDERS: Family Provider Internal Medicine; PCP Physician Assistant; Visit Provider Internal Medicine Hematology & Oncology
DX: R41.82 Altered mental status, unspecified (principal)
CPT/HCPCS: 70470; Q9967

== ENCOUNTER 2021-02-09 11:56 | Outpatient (CLI) | payer MEDICARE, SELFPAY ==
[2021-02-09 16:36] LABS: Alanine Aminotransferase 9 U/L (4-35); Albumin Level 3.4 g/dL (3.5-5.1); Alkaline Phosphatase 42 U/L (38-126); Anion Gap 4 mmol/L (8-16); Aspartate Amino Transferase 16 U/L (14-36); Bilirubin,Total 0.5 mg/dL (0.2-1.3); Blood Urea Nitrogen 18 mg/dL (7-17); Calcium 8.9 mg/dL (8.4-10.2); Carbon Dioxide 27 mmol/L (22-30); Chloride 108 mmol/L (98-107); Cholesterol 195 mg/dL (0-200); Estimated Glomerular Filt Rate 60; Glucose 134 mg/dL (65-105); HDL Direct 44 mg/dL; Potassium 4.7 mmol/L (3.4-5.0); Sodium 139 mmol/L (137-145); Triglycerides 174 mg/dL (<150)
[2021-02-09 16:47] LABS: LDL Cholesterol Direct 120 mg/dL
[2021-02-09 16:59] LABS: Hemoglobin A1C 5.5 % (<5.7)
[2021-02-09 17:25] LABS: Free T4 Free Thyroxine 1.06 ng/mL (0.78-2.19)
== END 2021-02-09 11:57 | disposition home or self-care (01) ==
LOC: ANHLAB 11:59
PROVIDERS: PCP Physician Assistant; Visit Provider Physician Assistant
DX: E03.9 Hypothyroidism, unspecified (principal); E78.2 Mixed hyperlipidemia; E11.9 Type 2 diabetes mellitus without complications; Z79.899 Other long term (current) drug therapy
CPT/HCPCS: 36415; 80048; 80061; 80076; 83036; 84439; 84443

== ENCOUNTER 2021-04-03 10:33 | Outpatient (CLI) | payer MEDICARE, SELFPAY ==
--- NOTE | ~2021-04-03 | CT_ITS ---
EXAMINATION: CT abdomen pelvis w con EXAM DATE: 04/03/2021 11:13 INDICATION: Endometrial cancer. TECHNIQUE: Spiral CT of the abdomen and pelvis was performed following intravenous injection of 100 m L Omnipaque 350. Axial, coronal and sagittal images of the abdomen and pelvis were reviewed. The do se-length product (DLP) for this examination was 250.16 mGy-cm. The exposure was tailored according to patient size (auto mA exposure control), and iterative reconstruction (ASIR) was used as additiona l dose reduction technique. Correlation is made to head CT 04/05/2020. FINDINGS: The liver, spleen, adrenal glands and pancreas are unremarkable. Punctate cholelithiasis v ersus small amount of gallbladder sludge. Portal and splenic veins are patent. Kidneys enhance symm etrically. There is no hydronephrosis. The uterus is not identified and has likely been surgically resected. Resolution of previously seen left-sided pelvic focal fluid pockets which could've been po stoperative seromas. The bladder is unremarkable. There is no retroperitoneal or pelvic lymphadenop athy. Small left inguinal fat-containing hernia. Mild scattered aortic arterial sclerosis. The appendix is normal. Nonspecific presacral edema, could be radiation related change if there is green ch history. There is mild scattered colonic diverticulosis. There is no adjacent inflammatory change to suggest diverticulitis. There is small sliding gastroesophageal hiatal hernia. There is expected amount of colonic stool. No free intraperitoneal gas. The heart is normal in size. There are no pericardial or pleural effusions. The lung bases are unremarkable. There are no osteoblastic or os teolytic lesions identified. IMPRESSION: 1. No evidence of metastatic disease. 2. Resolution of previously seen left pelvic fluid pockets. 3. Development of presacral edema, nonspecific. 4. Mild scattered colonic diverticulosis. 5. Small hiatal hernia. 6. Possible punctate cholelithiasis. Reviewed, dictated and finalized at location B.
== END 2021-04-03 10:34 | disposition home or self-care (01) ==
PROVIDERS: PCP Physician Assistant; Visit Provider Internal Medicine Hematology & Oncology
DX: C54.1 Malignant neoplasm of endometrium (principal); K57.30 Diverticulosis of large intestine without perforation or abscess without bleeding; K44.9 Diaphragmatic hernia without obstruction or gangrene
CPT/HCPCS: 74177; Q9967

== ENCOUNTER 2021-09-29 09:19 | Outpatient (CLI) | payer MEDICARE, SELFPAY ==
--- NOTE | ~2021-09-29 | CT_ITS ---
EXAMINATION: CT abdomen pelvis w con INDICATION: Endometrial cancer TECHNIQUE: Computed tomographic images of the abdomen and pelvis were obtained after the administrati on of 100 cc of Omnipaque 350 intravenous contrast. The dose-length product (DLP) was 235.74 mGy-cm. Automated exposure control and iterative reconstruction technique were employed. COMPARISON: 04/03/2021, 07/21/2020 FINDINGS: Minimal dependent atelectasis is present in the lung bases. The heart size is normal. The l iver, spleen, pancreas, and adrenal glands are normal. Stones are present in the nondistended gallbla dder. The kidneys are unremarkable. No pathologically enlarged abdominal or pelvic lymph nodes are id entified. There is no free intraperitoneal gas or evidence of bowel obstruction. There is calcified a therosclerosis of the aorta and many of the other arteries. The appendix is normal. A small pelvic fl uid collection continues to decrease in size. There is a left inguinal hernia containing fat. Changes in the sacrum are likely due to pelvic radiation. There are insufficiency fractures in the bilateral sacral ala. IMPRESSION: 1. No evidence of metastatic disease. 2. Sacral insufficiency fractures. 3. Cholelithiasis without evidence of cholecystitis. Reviewed, dictated and finalized at location A.
[2021-09-29 09:53] LABS: Estimated Glomerular Filt Rate 60
== END 2021-09-29 09:20 | disposition home or self-care (01) ==
LOC: ANHIMG 09:23
PROVIDERS: PCP Physician Assistant; Visit Provider Internal Medicine Hematology & Oncology
DX: C54.1 Malignant neoplasm of endometrium (principal); K80.20 Calculus of gallbladder without cholecystitis without obstruction
CPT/HCPCS: 74177; Q9967

== ENCOUNTER 2022-04-26 08:56 | Outpatient (CLI) | payer MEDICARE, SELFPAY ==
--- NOTE | ~2022-04-26 | CT_ITS ---
EXAMINATION: CT abdomen pelvis w con DATE: 04/26/2022 09:25 INDICATION: Endometrial cancer. TECHNIQUE: Computed tomography (CT) of the abdomen and pelvis was performed with 75 mL Omnipaque 300 intravenous contrast. Automated exposure control and iterative reconstruction technique were employed . The dose-length product was 261.31 mGy-cm. COMPARISON: CT abdomen and pelvis 09/29/2021 FINDINGS: The visualized portions of the lung bases demonstrate mild atelectasis. No pleural effusion . There is left atrial enlargement of the heart. No pericardial effusion. There are coronary artery c alcifications. The liver is normal. There are gallstones in the gallbladder, which is normal in size. Calcifications in the spleen are consistent with old granulomatous disease. The pancreas and adrenal glands are normal. There is cortical thinning of the kidneys. There are bilateral inguinal hernias c ontaining fat. There is diverticulosis of the colon without evidence of diverticulitis. There are no dilated loops of bowel. The appendix is normal. There is a small sliding hiatal hernia. There are no pathologically enlarged lymph nodes. There is no free intraperitoneal fluid. There are old healed sac ral insufficiency fractures. There is severe lumbar spondylosis. IMPRESSION: 1. No evidence of metastatic disease. Reviewed, dictated and finalized at location A.
[2022-04-26 09:21] LABS: Estimated Glomerular Filt Rate 60
== END 2022-04-26 08:57 | disposition home or self-care (01) ==
PROVIDERS: PCP Physician Assistant; Visit Provider Internal Medicine Hematology & Oncology
DX: C54.1 Malignant neoplasm of endometrium (principal)
CPT/HCPCS: 74177; Q9967

== ENCOUNTER 2022-11-02 07:10 | Outpatient (CLI) | payer MEDICARE, SELFPAY ==
--- NOTE | ~2022-11-02 | CT_ITS ---
EXAMINATION: CT abdomen pelvis w con DATE: 11/02/2022 07:44 INDICATION: Endometrial cancer restaging TECHNIQUE: Computed tomography (CT) of the abdomen and pelvis was performed with 100 CC Omnipaque 350 intravenous contrast. Automated exposure control and iterative reconstruction technique were employe d. Exam dose: 370.59 mGy-cm total exam DLP. COMPARISON: 04/26/2022 CT abdomen pelvis FINDINGS: The lung bases are clear. Borderline heart size. Both no pericardial or pleural effusion. There are multiple small stones in the dependent aspect of the gallbladder. No gallbladder wall thick ening or pericholecystic fluid or fat stranding. No bile duct or pancreatic duct dilatation. No hepatic, splenic, pancreatic, adrenal or renal space-occupying mass lesion is detected. There is a therosclerotic calcification of the abdominal aorta prominent calcification at the origins of the elaina iac and superior mesenteric and left renal arteries. No abdominal aortic aneurysm. No intraperitoneal or retroperitoneal or pelvic mass lesion or adenopathy or ascites. The urinary bladder is relatively evacuated which may account for moderate thickness of the urinary b ladder wall. Small sliding hiatal hernia. Diverticulosis of the sigmoid and descending colon; no CT evidence of diverticulitis. Normal appendix . No bowel obstruction, bowel wall thickening, pneumatosis or intraperitoneal free air is detected. There is minimal free fluid in the dependent pelvis. Status post hysterectomy. Degenerative spurring of the lower thoracic spine. Moderately severe degenerative disc disease at L3- 4. Degenerative changes apophyseal joints with associated minimal grade 1 anterolisthesis at L4-5. Bilateral hip osteoarthritis. IMPRESSION: Status post hysterectomy No abdominal or pelvic mass lesion or adenopathy Cholelithiasis Diverticulosis of the colon Reviewed, dictated and finalized at Location A. Reviewed, dictated and finalized at location B. 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
[2022-11-02 07:40] LABS: Estimated Glomerular Filt Rate 53
== END 2022-11-02 07:11 | disposition home or self-care (01) ==
PROVIDERS: PCP Physician Assistant; Visit Provider Internal Medicine Hematology & Oncology
DX: C54.1 Malignant neoplasm of endometrium (principal); K57.30 Diverticulosis of large intestine without perforation or abscess without bleeding; K80.20 Calculus of gallbladder without cholecystitis without obstruction
CPT/HCPCS: 74177; Q9967

== ENCOUNTER 2023-03-21 02:03 | Day surgery (SDC) | payer MEDICARE, SELFPAY ==
[2023-03-14 14:40] VITALS: BMI 27.4
[2023-03-21 09:45] VITALS: BP 184/76; PULSE 56; RESP 16; TEMP 36.6; O2SAT 98
[2023-03-21 10:01] VITALS: BMI 27.0
[2023-03-21] MEDS: LACTATED RINGERS 1,000 ML 150 ML IV CONT (10:11)
--- NOTE | 2023-03-21 10:32 | P.HP_ITS ---
History of Present Illness History of Present Illness Consent: Risks, benefits, and alternatives have been discussed and questions answered. Patient agrees to proceed with procedure. Chief complaint: BRBPR Narrative: Aubrie Pink is a 83 year old female Referred for colonoscopy because of rectal bleeding. Patient has noticed bright red blood per rectum that occurred briefly. For several days. His subsequently stopped. She denies any abdominal or rectal pain. Patient reports prior colonoscopy 2020 that revealed internal hemorrhoids. She has no known history of polyps or cancer in the family. Review of Systems Review of Systems: Review of systems noncontributory. [facility] Past Medical History Medical History (Updated 03/21/23 @ 10:34 by Zeyad Pisano MD) Diabetes Hyperlipidemia Hypertension (Unknown) Hypothyroid Surgical History Surgical History (Updated 09/02/20 @ 11:36 by Anish EnnisMD) History of hysterectomy with bilateral oophorectomy Family History Family History Sibling Cancer Sibling Cancer Father Cancer Social History Social History Smoking packs per day: 0.5 Smoking cigarettes per day: 10.0 Years smoked: 1 Smoking pack-years: 0.50 Smoking status: Former smoker Tobacco type: cigarettes Substance use type: does not use Living arrangements: alone Gender identity (if verbalized by the patient): Female Spiritual care concerns: No Meds Home Medications and Allergies Home Medications Medication Instructions Recorded Confirmed Type sodium,potassium,mag sulfates 17.5 See Rx Instructions PO .COMPLEX 02/28/23 03/21/23 Rx gram-3.13 gram-1.6 gram oral soln #354 mL (Suprep Bowel Prep Kit) Allergies Allergy/AdvReac Type Severity Reaction Status Date / Time No Known Allergies Allergy Verified 03/21/23 09:59 Exam Narrative: Physical exam reveals patient to be alert. Vital signs stable. HEENT exam is unremarkable. Patient is anicteric. Lungs are clear to auscultat ion and percussion. Heart is without murmur or extra sounds. Abdomen bowel sounds are present soft nontender with no organomegaly. Digital external rectal exam is normal. Assessment and Plan Assessment and plan (1) Rectal bleeding: Code(s): K62.5 - Hemorrhage of anus and rectum Status: Acute Assessment and Plan: Patient with episodes of rectal bleeding. She has of a colonoscopy within the last several years that showed internal hemorrhoids raising this is a likely possibility for the bleeding. High-fiber diet is advised. A colonoscopy has been scheduled. Further recommendations will be given after endoscopy. High- fiber diet advised. (2) Endometrial cancer: Onset Date: ~05/2020 Code(s): C54.1 - Malignant neoplasm of endometrium Status: Acute
[2023-03-21] MEDS: SIMETHICONE ORAL SUSPENSION 20 MG/0.3 ML 30 ML BOTTLE 0.6 ML IRRIGATION (10:48)
[2023-03-21 10:56] VITALS: BP 133/62; PULSE 50; RESP 20; O2SAT 97
[2023-03-21 11:06] VITALS: BP 159/73; PULSE 47; RESP 26; O2SAT 99
[2023-03-21 11:16] VITALS: BP 168/72; PULSE 48; RESP 18; O2SAT 98
== END 2023-03-21 11:26 | disposition home or self-care (01) ==
PROVIDERS: PCP Physician Assistant; Visit Provider Internal Medicine Gastroenterology
PROC: 0DJD8ZZ Inspection of Lower Intestinal Tract, Via Natural or Artificial Opening Endoscopic (ICD-10-PCS; CPT 45378; principal; 2023-03-21 11:00)
DX: K64.8 Other hemorrhoids (principal); K57.30 Diverticulosis of large intestine without perforation or abscess without bleeding; I10 Essential (primary) hypertension; E78.5 Hyperlipidemia, unspecified; E11.9 Type 2 diabetes mellitus without complications; E03.9 Hypothyroidism, unspecified; Z87.891 Personal history of nicotine dependence; Z85.42 Personal history of malignant neoplasm of other parts of uterus
CPT/HCPCS: 45378; J2704; J7120

== ENCOUNTER 2023-05-09 08:53 | Outpatient (CLI) | payer MEDICARE, SELFPAY ==
--- NOTE | ~2023-05-09 | CT_ITS ---
EXAMINATION: CT abdomen pelvis w con DATE: 05/09/2023 09:46 INDICATION: Endometrial cancer restaging TECHNIQUE: Computed tomography (CT) of the abdomen and pelvis was performed with 100 CC Omnipaque 350 intravenous contrast material intravenous contrast. Automated exposure control and iterative reconst ruction technique were employed. Exam dose: 307.98 mGy-cm total exam DLP. COMPARISON: 11/02/2022 CT abdomen pelvis FINDINGS: The lung bases are clear. Cardiomegaly. Coronary artery calcification. No pericardial or pl eural effusion. Small sliding hiatal hernia. Diffuse hepatic steatosis. Small gallstones or sludge at the dependent aspect of the gallbladder. No gallbladder wall thickening or pericholecystic fluid or fat stranding. No bile duct or pancreatic duct dilatation. No pancreatic mass lesion or calcification. Normal splenic size. Normal morphology of the adrenal glands. No renal mass lesion or urinary tract calculus or hydroureteronephrosis. The urinary bladder is unrem arkable. Status post hysterectomy. Normal caliber in atherosclerosis of the abdominal aorta. No intraperitoneal or retroperitoneal or pe lvic mass lesion or adenopathy or ascites. Normal appendix. There are diverticula of the left and right colon, most frequently in the sigmoid re gion. There is no evidence of diverticulitis. No bowel obstruction, bowel wall thickening, pneumatosi s or intraperitoneal free air is detected. Bilateral fat-containing inguinal hernias. Minimal free fluid in the dependent pelvis. No suspicious osteolytic or osteoblastic lesions are noted. Degenerative changes of the thoracic and lumbar spine and both hips. IMPRESSION: Diverticulosis of the colon; no CT evidence of diverticulitis Normal appendix Small sliding hiatal hernia Cholelithiasis Hepatic steatosis Status post hysterectomy; no evidence of recurrent or metastatic malignancy Reviewed, dictated and finalized at Location A. Reviewed, dictated and finalized at location L.
[2023-05-09 09:29] LABS: Estimated Glomerular Filt Rate 60
== END 2023-05-09 08:54 | disposition home or self-care (01) ==
PROVIDERS: PCP Physician Assistant; Visit Provider Internal Medicine Hematology & Oncology
DX: C54.1 Malignant neoplasm of endometrium (principal); K44.9 Diaphragmatic hernia without obstruction or gangrene; K80.20 Calculus of gallbladder without cholecystitis without obstruction; K76.0 Fatty (change of) liver, not elsewhere classified; K57.30 Diverticulosis of large intestine without perforation or abscess without bleeding
CPT/HCPCS: 74177; Q9967

== ENCOUNTER 2023-08-23 21:12 | Emergency (ER) | payer OTHER, MEDICARE, SELFPAY ==
--- NOTE | ~2023-08-23 | XR_ITS ---
XR chest 2V DATE: 08/23/2023 21:43 INDICATION: Patient tripped over rug and fell. Hypertension. TECHNIQUE: PA and lateral views COMPARISON: 08/31/2020 portable AP chest FINDINGS: Right Port-A-Cath catheter tip is situated near the superior cavoatrial junction. Mild card iac megaly. There is aortic calcification and unfolding. Stable prominent right hilum, not significantly changed since 08/31/2020. Mild elevation right diaphragm. Minimal atelectasis is suggested at the right lung base. The lungs ot herwise appear clear. No pleural effusion or pulmonary mass congestion or pneumothorax. Diffuse osteopenia. IMPRESSION: Mild elevation right diaphragm and mild atelectasis at right lung base Mild cardiomegaly Aortic atherosclerosis Right Port-A-Cath Osteopenia Reviewed, dictated and finalized at location A. IMPRESSION: Mild elevation right diaphragm and mild atelectasis at right lung b ase Mild cardiomegaly Aortic atherosclerosis Right Port-A-Cath Osteopenia
--- NOTE | ~2023-08-23 | CT_ITS ---
EXAMINATION: CT brain wo con DATE: 08/23/2023 21:38 INDICATION: Head trauma TECHNIQUE: Computed tomography (CT) of the head was performed without intravenous contrast. The mA wa s adjusted according to patient size. Iterative reconstruction technique was employed. Exam dose: 60 5.33 mGy-cm total exam DLP. COMPARISON: 12/23/2020 CT brain FINDINGS: Bilateral vertebral artery, basilar artery calcification and prominent bilateral carotid si phon internal carotid artery calcifications. There is nonspecific diminished attenuation of the cerebral white matter, likely due to chronic small vessel ischemic changes. No intracranial mass lesion or hemorrhage or cerebrovascular accident is detected. Minimal left basal ganglia calcification. Moderate central and cortical cerebral atrophy, mild cerebellar atrophy. No subdural or epidural hematoma is detected. High left frontal cephalohematoma. No skull fracture or intracranial coup or contrecoup injury is det ected. The mastoid air cells and paranasal sinuses are normally developed and aerated. IMPRESSION: High left frontal cephalhematoma; no skull fracture or acute intracranial finding Cerebral atherosclerosis and chronic small vessel ischemic changes of the cerebral white matter Reviewed, dictated and finalized at [facility]. Reviewed, dictated and finalized at [facility]. IMPRESSION: High left frontal cephalhematoma; no skull fracture or acute intra cranial finding Cerebral atherosclerosis and chronic small vessel ischemic changes of the cereb ral white matter
--- NOTE | ~2023-08-23 | CT_ITS ---
EXAMINATION: CT cervical spine wo con DATE: 08/23/2023 21:39 INDICATION: Ground-level fall. Left forehead contusion. TECHNIQUE: Computed tomography (CT) of the cervical spine was performed without intravenous contrast. Automated exposure control and iterative reconstruction technique were employed. Exam dose: 605.33 mGy-cm total exam DLP. COMPARISON: None FINDINGS: C1 and C2 are normally aligned and the odontoid process is intact. No fracture or dislocation or locked facet or prevertebral soft tissue swelling. There is degenerative change at the articulation of the anterior arch of C1 and the odontoid process of C2. Moderately severe degenerative disc disease and mild retrolisthesis at C5-6. Moderately severe degene rative disc disease at C6-7. Minimal anterolisthesis at C7-T1. There is degenerative change at the apophyseal joints throughout the cervical spine. Uncovertebral paty int spurring is noted in the mid and lower cervical spine, most severe at C5-6.. IMPRESSION: Cervical spondylosis; no fracture or dislocation or locked facet Reviewed, dictated and finalized at [facility]. Reviewed, dictated and finalized at [facility].
[2023-08-23 21:08] VITALS: BP 196/88; PULSE 64; RESP 15; TEMP 37; O2SAT 97
--- NOTE | 2023-08-23 22:08 | ED.FALL ---
HPI - Fall General Chief Complaint: Fall Stated Complaint: fall Time Seen by Provider: 08/23/23 21:19 History of Present Illness HPI Narrative: Patient is an 83-year-old female with history of hypertension here after a fall. Patient states that she was out with friends and tripped over a rug and hit her head on the ground. She denies loss of consciousness. She denies blood thinner use. She notes that she thinks she hit her left knee on the ground when she fell but she has been able to ambulate without difficulty and has normal range of motion and minimal pain in the left knee. She denies any additional injuries. She does not know when her last tetanus shot was. Believes it was many years ago. Patient denies any prodromal chest pain or shortness of breath, no current chest pain or shortness of breath. Related Data Home Medications Medication Instructions Recorded Confirmed psyllium husk 0.4 gram capsule 1.6 g PO BID 04/08/23 07/29/23 (Metamucil) Allergies Allergy/AdvReac Type Severity Reaction Status Date / Time No Known Allergies Allergy Verified 07/29/23 09:31 Review of Systems Review of Systems: CONSTITUTIONAL: Denies fever, chills, or sweats. EYES: Denies visual changes, redness, or discharge. ENT: Denies rhinorrhea, congestion, sore throat, or otalgia. CARDIOVASCULAR: Denies chest pain, palpitations, or edema. RESPIRATORY: Denies cough or dyspnea. GASTROINTESTINAL: Denies abdominal pain, nausea, vomiting, or diarrhea. GENITOURINARY: Denies dysuria or hematuria. SKIN: Facial abrasion. MUSCULOSKELETAL: Left knee pain, Denies back pain, myalgia. NEUROLOGIC: headache, no numbness, or weakness. PSYCHIATRIC: Denies anxiety or depression. [facility] Past Medical History Medical History (Updated 08/24/23 @ 14:50 by Marcela Espinosa MD) Diabetes Hyperlipidemia Hypertension (Unknown) Hypothyroid Surgical History Surgical History (Updated 09/02/20 @ 11:36 by Anish LaraMD) History of hysterectomy with bilateral oophorectomy Family History Family History Sibling Cancer Sibling Cancer Father Cancer Social History Social History Smoking packs per day: 0.5 Smoking cigarettes per day: 10.0 Years smoked: 1 Smoking pack-years: 0.50 Smoking status: Former smoker Tobacco type: cigarettes Substance use type: does not use Living arrangements: alone Gender identity (if verbalized by the patient): Female Spiritual care concerns: No Exam Narrative: GENERAL: Well-appearing, well-nourished, and in no acute distress. HEAD: Normocephalic, hematoma over the left forehead EYES: PERRLA and EOMI. ENT: Nares clear. Mucous membranes moist. NECK: Supple. CHEST: Clear to auscultation. No respiratory distress. HEART: Regular rate and rhythm. Normal peripheral pulses. ABDOMEN: Soft, nontender, nondistended. EXTREMITIES: Normal range of motion. No edema. Mild tenderness to left knee. No crepitus. SKIN: 1cm circular abrasion present over the lateral aspect of the left eyebrow. Warm, dry, no rash. NEURO: No focal deficits. Alert and oriented x3. PSYCH: Normal mood and affect. Course Course Emergency Course: Chart review performed, patient is here after a trip and fall with a head injury. Hypertensive in triage, otherwise vitals within normal limits. Will order CT head, C-spine, chest x-ray given fall in advanced age. CT head, C-spine, chest x-ray all read as negative by Radiology. Patient seen and evaluated, alert, oriented, nontoxic appearing. No concerning prodrome, currently asymptomatic. She does have a Mild tenderness over the left anterior knee, full range of motion with normal PMS distal to the injury. No crepitus, she has been tolerating ambulation and bearing weight without difficulty. Do not believe she needs additional imaging on this kn
[2023-08-23] MEDS: TETANUS,DIPHTHERIA,AC PERTUSSIS ADULT (0.5 ML) BOOSTRIX IM (22:46)
[2023-08-23 22:48] VITALS: BP 173/83; PULSE 76; RESP 15; O2SAT 99
== END 2023-08-23 22:50 | disposition home or self-care (01) ==
PROVIDERS: Emergency Provider Student in an Organized Health Care Education/Training Program; PCP Physician Assistant
DX: S00.83XA Contusion of other part of head, initial encounter (principal); S00.212A Abrasion of left eyelid and periocular area, initial encounter; Z23 Encounter for immunization; E11.9 Type 2 diabetes mellitus without complications; E78.5 Hyperlipidemia, unspecified; I10 Essential (primary) hypertension; E03.9 Hypothyroidism, unspecified; Z87.891 Personal history of nicotine dependence; Z90.710 Acquired absence of both cervix and uterus; Z90.722 Acquired absence of ovaries, bilateral; M47.812 Spondylosis without myelopathy or radiculopathy, cervical region; I67.2 Cerebral atherosclerosis; M85.88 Other specified disorders of bone density and structure, other site; I51.7 Cardiomegaly; I70.0 Atherosclerosis of aorta; W18.09XA Striking against other object with subsequent fall, initial encounter
CPT/HCPCS: 70450; 71046; 72125; 90471; 90715; 99284

== ENCOUNTER 2024-03-16 08:17 | Outpatient (CLI) | payer MEDICARE, SELFPAY ==
--- NOTE | ~2024-03-16 | CT_ITS ---
Clinical Indication: Endometrial carcinoma CT Scan of the Chest, Abdomen, and Pelvis with Contrast: Technique: Contiguous sections were acquired throughout the chest, abdomen, and pelvis after intraven ous administration of 100 cc of Omnipaque 350. Dose reduction technique was used on this scan by [employer] [employer] automated exposure control and iterative reconstruction technique. The dose-length product (DL P) was 397.40 mGy-cm. Findings: There is no evidence of any significant mediastinal, hilar or axillary lymphadenopathy. The mediastin al soft tissues and vascular structures appear normal. There is no evidence of pleural or pericardial effusion. The lungs are clear. No pulmonary nodules or infiltrates are noted. The liver, spleen, pancreas, adrenals and kidneys are within normal limits. Small layering gallstones are present. No evidence of aortic aneurysm. No lymphadenopathy. No bowel obstruction or bowel wall thickening. There is no evidence to suggest acute appendicitis. Urinary bladder is unremarkable. No adnexal mass evident. No ascites. Status post hysterectomy. Fat-c ontaining left inguinal hernia present. Impression: No evidence of active malignancy or metastatic disease. Cholelithiasis. Fat-containing left inguinal hernia. Reviewed, dictated and finalized at location . Impression: No evidence of active malignancy or metastatic disease. Cholelithiasis. Fat-containing left inguinal hernia.
[2024-03-16 08:55] LABS: Estimated Glomerular Filt Rate 53
== END 2024-03-16 08:18 | disposition home or self-care (01) ==
PROVIDERS: PCP Physician Assistant; Visit Provider Internal Medicine Hematology & Oncology
DX: C54.1 Malignant neoplasm of endometrium (principal); K80.20 Calculus of gallbladder without cholecystitis without obstruction; K40.90 Unilateral inguinal hernia, without obstruction or gangrene, not specified as recurrent
CPT/HCPCS: 71260; 74177; Q9967

== ENCOUNTER 2025-03-15 09:04 | Outpatient (CLI) | payer MEDICARE, SELFPAY ==
--- NOTE | ~2025-03-15 | CT_ITS ---
CT of the Abdomen and Pelvis: Indication: Endometrial Technique: 2.5 mm axial scans were obtained through the abdomen and pelvis following intravenous adm inistration of 100 cc of Omnipaque 350. Dose reduction technique was used on this scan by utilizing a utomated exposure control and iterative reconstruction technique. The dose-length product (DLP) was 2 07.98 mGy-cm. COMPARISON: 03/16/2024 Findings: Scans through the lung bases are unremarkable. The liver, spleen, pancreas, adrenals and kidneys are within normal limits. Small layering gallstones are present. No evidence of aortic aneurysm. No lymphadenopathy. Probable mild large bowel wall thickening diffusely. No bowel obstruction. Images through the pelvis were performed. Urinary bladder unremarkable. Small fat-containing left ing uinal hernia present. Status post hysterectomy. No pelvic mass evident. Trace ascites. Impression: No definite evidence for active malignancy or metastatic disease. Mild large bowel wall thickening. Correlate for infectious/inflammatory colitis. Fat-containing left inguinal hernia. Cholelithiasis. Reviewed, dictated and finalized at [facility]. Impression: No definite evidence for active malignancy or metastatic disease. Mild large bowel wall thickening. Correlate for infectious/inflammatory colitis . Fat-containing left inguinal hernia. Cholelithiasis.
[2025-03-15 09:35] LABS: Estimated Glomerular Filt Rate 53
--- OUTSIDE RECORDS SUMMARY | 2025-03-15 09:40 | XMS_ITS | Clinical Summary ---
Author Organization [facility] Address [address] [place] [address] Care Team Providers Care Travograph Operator Name Role Phone Anupama Marcelo Primary Care Pr ovider Raine Sam MD Unavailable [phone] Allergies No known active allergies Medications lisinopriL (PRINIVIL,ZESTR IL) 40 mg tabletIndicatio ns:hypertension Take 40 mg by mouth 2 (two) times a day Active levothyroxine (SYNTHROID) 75 mcg tabletIndicatio ns:hypothyroidi sm Take 75 mcg by mouth early childhood special educator before breakfast Active amLODIPine (NORVASC) 2.5 mg tabletIndicatio ns:hypertension Take 2.5 mg by mouth early childhood special educator before breakfast Active atorvastatin (LIPITOR) 20 mg tabletIndicatio ns:hyperlipidem ia Take 20 mg by mouth nightly Active nebivoloL (Bystolic) 10 mg tabletIndicatio ns:hypertension Take 5 mg by mouth nightly Active metFORMIN XR (GLUCOPHAGE XR) 500 mg 24 hr tabletIndicatio ns:type 2 diabetes mellitus Take 500 mg by mouth nightly Active oxyCODONE (ROXICODONE) 5 mg immediate release tabletIndicatio ns:Pain Take 1 tablet (5 mg total) by mouth every 4 (four) hours as needed for pain 10 tablet 0 Active Additional Information Patient not taking.Reported on 08/22/2020 acetaminophen (TYLENOL) 500 mg tablet Take 2 tablets (1,000 mg total) by mouth every 6 (six) hours as needed for pain 60 tablet 0 Active Additional Information Patient not taking.Reported on 08/22/2020 ibuprofen (ADVIL,MOTRIN) 600 mg tablet Take 1 tablet (600 mg total) by mouth every 6 (six) hours as needed for pain 60 tablet 0 Active Additional Information Patient not taking.Reported on 08/22/2020 polyethylene glycol (MIRALAX) 17 gram packet Take 1 packet (17 g total) by mouth daily 14 packet 0 Active Additional Information Patient not taking.Reported on 07/04/2020 docusate sodium (COLACE) 100 mg capsuleIndicati ons:constipatio n Take 1 capsule (100 mg total) by mouth 2 (two) times a day as needed for constipation 30 capsule 0 Active Additional Information Patient not taking.Reported on 08/22/2020 Active Problems Problem Noted Date Diagnosed Date Abrasion of toe 07/04/2020 Benign essential hypertension 07/04/2020 Bilateral cataracts 07/04/2020 Bradycardia 07/04/2020 Hypothyroidism 07/04/2020 Impaired glucose tolerance 07/04/2020 Mixed hyperlipidemia 07/04/2020 Endometrial cancer 05/16/2020 Overview (05/16/2020): Added automatically from request for surgery [id number] Surgical History Surgery Date Site/Laterality Comments DILATION AND CURETTAGE OF UTERUS HYSTERECTOMY HYSTERECTOMY W/ BILATERAL SALPINGOOPHORECTOMY Bilateral Medical History Medical History Date Comments Hypertension Hypercholesteremia Diabetes mellitus (HCC) Thyroid disease Endometrial cancer (HCC) Family History Medical History Relation Name Comments Leukemia Father Heart disease Mother Pancreatic cancer Sister 2 Anesthesia problems Neg Hx Relation Name Status Comments Father Mother Sister 1 Sister 2 Social History Tobacco Use Types Packs/Day Years Used Date Smoking Tobacco: Never Smokeless Tobacco: Never Alcohol Use Standard Drinks/Week Comments Never 0 (1 standard drink = 0.6 oz pur e alcohol) AUDIT-C Answer Date Recorded Q1: How often do you have a drink containing alc ohol? Never 05/16/2020 Average Number of Drinks Not on file 020 Frequency of Binge Drinking Not on file 05/02 Comments No Sex and Gender Information Value Date Recorded Sex Assigned at Not on file Legal Sex Female 11:52 AM CDT Gender Identity Not on file Sexual Orientation Not on file Obstetrics History Para Term AB IAB SAB Ectopic Multiple Livin g Live Births 0 0 0 0 0 0 0 0 0 0 0 Last Filed Vital Signs Vital Sign Reading Time Taken Comments Blood Pressure 118/68 08/22/2020 3:08 PM CDT Pulse 78 08/22/2020 3:08 PM CDT Temperature 35.9 C (96.7 F) 08/22/2020 3:08 PM CDT Respiratory Rate 18 08/22/2020 3:08 PM CDT Oxygen Saturation 93% 08/22/2020 3:08 PM CDT Inhaled Oxygen Concentration - - Weight 57.8 kg (127 lb 8 oz) 08/22/2020 3:08 PM CDT Height 154.9 cm (5' 0.98 ) 08/22/2020 3:08 PM CD T Body Mass Index 24.1 08/22/2020 3:08 PM CDT Plan of Treatment Not on file Insurance [facility] MEDIC[facility] Advance Directives For more information, please contact: [phone] * Full Code (Latest Code Status on File) Date Activated Date Inactivated Comments 06/21/2020 6:20 PM 06/22/2020 9:41 PM Care Teams Travograph Operator Relationship Specialty Start Date End Date Anupama Marcelo PA PCP - General Physician Social Media Senior Associate 04/29/20 Raine Sam MD Obstetrics and Gynecology 04/29/20
--- OUTSIDE RECORDS SUMMARY | 2025-03-15 09:40 | XMS_ITS | Data Portability ---
Author Organization [facility], Main Office Address [address] [place] [address] Assessment No assessment recorded. Plan of Treatment Reminders Order Date Submit Date Provider Last Modified By Organization Details Last Modified Time Details Appointments None recorded. Lab T4, free, serum 2022 023 LikeAndy [facility], [address], [address], [place], [address], 3 04:32:07 TSH, serum or plasma 2022 023 LikeAndy [facility], [address], [place], [address], 3 04:32:06 lipid panel, serum 2022 023 LikeAndy [facility], [address], [place], [address], 3 05:08:02 HbA1c (hemoglobin A1c), blood 2022 023 LikeAndy [facility], [address], [place], [address], 3 05:08:04 BMP, serum or plasma 2022 023 LikeAndy [facility], [address], [place], [address], 3 05:08:03 CBC w/ auto diff 2022 023 LikeAndy [facility], [address], [place], [address], 3 05:08:05 hepatic function panel, serum 2022 023 [employer]ACE[employer] Jump [facility], [address], [address], [place], [address], 3 05:08:04 TSH + free T4, serum 2022 023 ROGERS Ponfac [facility], [address], [address], [place], [address], 3 05:08:00 Referral None recorded. Procedures diagnostic colonoscopy (PROC) 2022 023 JACE Rosales MD, [address], [address], [place], [address], 3 12:14:16 Surgeries None recorded. Imaging None recorded. Medication Orders amlodipine 2.5 mg tablet 2022 023 [id number], [address] [facility], [place], [place], [id number], 3 11:30:09 levothyroxi ne 75 mcg tablet 2022 023 [id number], [address] [place], [place], [id number], 3 11:29:45 Patient TargetsNo targets recorded. Patient InstructionsNo instructions recorded. Reason for Referral None Reported. Results Created Date Observation Date Name Description Value Unit Range Abnormal Flag Note LastModifiedBy Organization Detail LastModifiedTime 02/22/2002/22/2023 TSH+F REE T4 TSH 12.56 mIU/L 0.40-4 .50 high Not Available [facility] [address] [place], [address], 02/22/2023 05:08:00 02/22/2002/22/2023 TSH+F REE T4 T4, free 0.8 NG/dL 0.8-1. 8 normal Not Available [facility] [address] [place], [address], 02/22/2023 05:08:00 02/22/2002/22/2023 LIPID PANEL , STAND [place]ACHIN cholesterol, total 160 mg/dL <200 normal Not Available [facility] [address] [place], [address], 02/22/2023 05:08:02 02/22/2002/22/2023 LIPID PANEL , [place]AND [place] HDL cholesterol 54 mg/dL > or = 50 normal Not Available [facility] [address] [place], [address], 02/22/2023 05:08:02 02/22/2002/22/2023 LIPID PANEL , STAND [place]ACHIN triglyceride s 165 mg/dL <150 high Not Available [facility] [address], [address], 02/22/2023 05:08:02 02/22/2002/22/2023 LIPID PANEL , [place] LDL-choleste rol 80 mg/dL _(fanny c) normal Refer ence range : <100 Elan able range <100 mg/dL for prima ry preve ntion ; <70 mg/dL for patie nts with CHD or diabe tic patie nts with > or = 2 CHD risk facto rs. LDL-C is now calcu lated using the Mer n-Hop kins lynneu erbekah n, which is a valid ated novel metho d antonio rodgers r accur acy than the Fried mel equat ion in the estim ation of LDL-C . Mer mcconnell SS et al. BETTE. 2013; 310(1 9): 2061- 2068 (http ://ed ucati on.Qu Drew pace tics. com/f aq/FA Q164) Not Available [facility] [address] [place], [address], 02/22/2023 05:08:02 02/22/202023 LIPID PANEL , STAND [place]ACHIN chol/HDLC ratio 3.0 (calc ) <5.0 normal Not Available [address], [address], 02/22/2023 05:08:02 02/22/20 23 02/22/2023 LIPID PANEL , [place] non HDL cholesterol 106 mg/dL _(fanny c) <130 normal For patie nts with diabe mone plus 1 major ASCVD risk facto r, treat ing to a non-H DL-C goal of <100 mg/dL (LDL- C of <70 mg/dL ) is consi dered a thera peuti c optio n. Not Available [address], [address], 02/22/2023 05:08:02 02/22/2002/22/2023 BASIC METAB OLIC PANEL glucose 115 mg/dL 65-99 high Fasti ng refer ence inter tevin For someo ne witho ut known diabe mone, a gluco se value betwe en 100 and 125 mg/dL is consi stent with predi abete s and shoul d be confi rmed with a follo w-up test. Not Available [address], [address], 02/22/2023 05:08:03 02/22/2002/22/2023 BASIC METAB OLIC PANEL urea nitrogen (BUN) 8 mg/dL 7-25 normal Not Available [facility] [address] [place], [address], 02/22/2023 05:08:03 02/22/2002/22/2023 BASIC METAB OLIC PANEL creatinine 0.90 mg/dL 0.60-0 .95 normal Not Available [facility] [address] [address] [place], [address], 02/22/2023 05:08:03 03/23/20 23 02/22/2023 BASIC METAB OLIC PANEL eGFR 64 mL/mi n/1.7 3m2 > or = 60 normal The eGFR is based on the CKD-E PI 2020 equat ion. To calcu late the new eGFR from a previ ous Creat inine or Cysta juan castro t, go to https ://emil woody.montana martinez.o lakia/pr ofess ional s/ kdoqi /gfr% 5Fcal culat or Not Available [address] [address] [place], [address], 02/22/2023 05:08:03 02/22/20 23 02/22/2023 BASIC METAB OLIC PANEL BUN/creatini ne ratio NOT APPLIC ABLE (calc ) 6-22 Not Available [address], [address], 02/22/2023 05:08:03 02/22/20 23 02/22/2023 BASIC METAB OLIC PANEL sodium 144 mmol/ L 135-14 6 normal Not Available [address], [address], 02/22/2023 05:08:03 02/22/20 23 02/22/2023 BASIC METAB OLIC PANEL potassium 4.1 mmol/ L 3.5-5. 3 normal Not Available [address] [address] [place], [address], 02/22/2023 05:08:03 02/22/20 23 02/22/2023 BASIC METAB OLIC PANEL chloride 108 mmol/ L 98-110 normal Not Available [facility] [address] [address] [place], [address], 02/22/2023 05:08:03 02/22/2002/22/2023 BASIC METAB OLIC PANEL carbon dioxide 30 mmol/ L 20-32 normal Not Available [facility] [address] [address] [place], [address], 02/22/2023 05:08:03 02/22/20 23 02/22/2023 BASIC METAB OLIC PANEL calcium 9.4 mg/dL 8.6-10 .4 normal Not Available [address] [place], [address], 02/22/2023 05:08:03 02/22/2002/22/2023 HEMOG LOBIN A1C hemoglobin A1C 6.0 %_of_ total _HGB <5.7 high For someo ne witho ut known diabe mone, a hemog lobin A1c value betwe en 5.7% and 6.4% is consi stent with predi abete s and shoul d be confi rmed with a follo w-up test. For someo ne with known diabe mone, a value <7% indic ates that their diabe mone is well contr olled . A1c targe ts shoul d be indiv idual ized based on durat ion of diabe mone, age, comor bid condi tions , and other consi derat ions. This assay resul t is consi stent with an incre ased risk of diabe mone. Curre ntly, no conse nsus exist s regar ding use of hemog lobin A1c for diagn osis of diabe mone for child nicholas. Not Available [address] [place], [address], 02/22/2023 05:08:03 02/22/2002/22/2023 HEPAT IC FUNCT ION PANEL protein, total 6.7 g/dL 6.1-8. 1 normal Not Available [facility] [address] [address] [place], [address], 02/22/2023 05:08:04 02/22/2002/22/2023 HEPAT IC FUNCT ION PANEL albumin 4.4 g/dL 3.6-5. 1 normal Not Available [facility] [address] [place], [address], 02/22/2023 05:08:04 02/22/20 23 02/22/2023 HEPAT IC FUNCT ION PANEL globulin 2.3 g/dL_ (calc ) 1.9-3. 7 normal Not Available [address] [address] [place], [address], 02/22/2023 05:08:04 02/22/2002/22/2023 HEPAT IC FUNCT ION PANEL albumin/glob ulin ratio 1.9 (calc ) 1.0-2. 5 normal Not Available [address], [address], 02/22/2023 05:08:04 02/22/2002/22/2023 HEPAT IC FUNCT ION PANEL bilirubin, total 1.2 mg/dL 0.2-1. 2 normal Not Available [address] [address] [place], [address], 02/22/2023 05:08:04 02/22/2002/22/2023 HEPAT IC FUNCT ION PANEL bilirubin, direct 0.2 mg/dL < or = 0.2 normal Not Available [address] [address] [place], [address], 02/22/2023 05:08:04 02/22/2002/22/2023 HEPAT IC FUNCT ION PANEL bilirubin, indirect 1.0 mg/dL _(fanny c) 0.2-1. 2 normal Not Available [address] [address] [place], [address], 02/22/2023 05:08:04 02/22/2002/22/2023 HEPAT IC FUNCT ION PANEL alkaline phosphatase 89 U/L 37-153 normal Not Available [facility] [employer] [address] [address] [place], [address], 02/22/2023 05:08:04 02/22/2002/22/2023 HEPAT IC FUNCT ION PANEL AST 21 U/L 10-35 normal Not Available [address] [address] [place], [address], 02/22/2023 05:08:04 02/22/2002/22/2023 HEPAT IC FUNCT ION PANEL ALT 16 U/L 6-29 normal Not Available [address], [address], 02/22/2023 05:08:04 02/22/2002/22/2023 CBC (INCL UDES DIFF/ PLT) white blood cell count 6.9 thous and/u L 3.8-10 .8 normal Not Available [address], [address], 02/22/2023 05:08:05 02/22/2002/22/2023 CBC (INCL UDES DIFF/ PLT) red blood cell count 4.41 daniel on/uL 3.80-5 .10 normal Not Available [address], [address], 02/22/2023 05:08:05 02/22/2002/22/2023 CBC (INCL UDES DIFF/ PLT) hemoglobin 13.5 g/dL 11.7-1 5.5 normal Not Available [address], [address], 02/22/2023 05:08:05 02/22/2002/22/2023 CBC (INCL UDES DIFF/ PLT) hematocrit 40.9 % 35.0-4 5.0 normal Not Available [address], [address], 02/22/2023 05:08:05 02/22/2002/22/2023 CBC (INCL UDES DIFF/ PLT) MCV 92.7 fL 80.0-1 00.0 normal Not Available [address], [address], 02/22/2023 05:08:05 02/22/2002/22/2023 CBC (INCL UDES DIFF/ PLT) MCH 30.6 pg 27.0-3 3.0 normal Not Available [address], [address], 02/22/2023 05:08:05 02/22/2002/22/2023 CBC (INCL UDES DIFF/ PLT) MCHC 33.0 g/dL 32.0-3 6.0 normal Not Available [address], [address], 02/22/2023 05:08:05 02/22/2002/22/2023 CBC (INCL UDES DIFF/ PLT) RDW 12.5 % 11.0-1 5.0 normal Not Available [address], [address], 02/22/2023 05:08:05 02/22/2002/22/2023 CBC (INCL UDES DIFF/ PLT) platelet count 210 thous and/u L 140-40 0 normal Not Available [address], [address], 02/22/2023 05:08:05 02/22/2002/22/2023 CBC (INCL UDES DIFF/ PLT) MPV 9.5 fL 7.5-12 .5 normal Not Available [address], [address], 02/22/2023 05:08:05 02/22/2002/22/2023 CBC (INCL UDES DIFF/ PLT) absolute neutrophils 4920 cells /uL 1500-7 800 normal Not Available [address], [address], 02/22/2023 05:08:05 02/22/2002/22/2023 CBC (INCL UDES DIFF/ PLT) absolute lymphocytes 1352 cells /uL 850-39 00 normal Not Available [address], [address], 02/22/2023 05:08:05 02/22/20 23 02/22/2023 CBC (INCL UDES DIFF/ PLT) absolute monocytes 524 cells /uL 200-95 0 normal Not Available [facility] [address], [address], 02/22/2023 05:08:05 02/22/2002/22/2023 CBC (INCL UDES DIFF/ PLT) absolute eosinophils 83 cells /uL 15-500 normal Not Available [address], [address], 02/22/2023 05:08:05 02/22/2002/22/2023 CBC (INCL UDES DIFF/ PLT) absolute basophils 21 cells /uL 0-200 normal Not Available [facility] [address], [address], 02/22/2023 05:08:05 02/22/20 23 02/22/2023 CBC (INCL UDES DIFF/ PLT) neutrophils 71.3 % normal Not Available [facility] [address], [address], 02/22/2023 05:08:05 02/22/2002/22/2023 CBC (INCL UDES DIFF/ PLT) lymphocytes 19.6 % normal Not Available [facility] [address], [address], 02/22/2023 05:08:05 02/22/2002/22/2023 CBC (INCL UDES DIFF/ PLT) monocytes 7.6 % normal Not Available [facility] [address], [address], 02/22/2023 05:08:05 02/22/2002/22/2023 CBC (INCL UDES DIFF/ PLT) eosinophils 1.2 % normal Not Available [facility] [address], [address], 02/22/2023 05:08:05 02/22/20 23 02/22/2023 CBC (INCL UDES DIFF/ PLT) basophils 0.3 % normal Not Available [address], [address], 02/22/2023 05:08:05 08/12/20 23 08/13/2023 TSH+F REE T4 TSH 14.79 mIU/L 0.40-4 .50 high Not Available [address], [address], 08/13/2023 08:33:53 08/12/2008/13/2023 TSH+F REE T4 T4, free 0.8 NG/dL 0.8-1. 8 normal Not Available [facility] [address], [address], 08/13/2023 08:33:53 08/12/2008/13/2023 BASIC METAB OLIC PANEL glucose 117 mg/dL 65-99 high Fasti ng refer ence inter tevin For someo ne witho ut known diabe mone, a gluco se value betwe en 100 and 125 mg/dL is consi stent with predi abete s and shoul d be confi rmed with a follo w-up test. Not Available [address], [address], 08/13/2023 08:33:54 08/12/2008/13/2023 BASIC METAB OLIC PANEL urea nitrogen (BUN) 11 mg/dL 7-25 normal Not Available [facility] [address], [address], 08/13/2023 08:33:54 08/12/2008/13/2023 BASIC METAB OLIC PANEL creatinine 0.98 mg/dL 0.60-0 .95 high Not Available [facility] [address], [address], 08/13/2023 08:33:54 08/12/20 23 08/13/2023 BASIC METAB OLIC PANEL eGFR 57 mL/mi n/1.7 3m2 > or = 60 low Not Available [address], [address], 08/13/2023 08:33:54 08/12/20 23 08/13/2023 BASIC METAB OLIC PANEL BUN/creatini ne ratio 11 (calc ) 6-22 normal Not Available [address], [address], 08/13/2023 08:33:54 08/12/20 23 08/13/2023 BASIC METAB OLIC PANEL sodium 141 mmol/ L 135-14 6 normal Not Available [address], [address], 08/13/2023 08:33:54 08/12/2008/13/2023 BASIC METAB OLIC PANEL potassium 4.4 mmol/ L 3.5-5. 3 normal Not Available [address], [address], 08/13/2023 08:33:54 08/12/2008/13/2023 BASIC METAB OLIC PANEL chloride 107 mmol/ L 98-110 normal Not Available [address], [address], 08/13/2023 08:33:54 08/12/2008/13/2023 BASIC METAB OLIC PANEL carbon dioxide 25 mmol/ L 20-32 normal Not Available [address], [address], 08/13/2023 08:33:54 08/12/20 23 08/13/2023 BASIC METAB OLIC PANEL calcium 9.4 mg/dL 8.6-10 .4 normal Not Available [address], [address], 08/13/2023 08:33:54 08/12/2008/13/2023 HEMOG LOBIN A1C hemoglobin A1C 5.6 %_of_ total _HGB <5.7 normal For the purpo se of veronique cortes for the prese nce of diabe mone: <5.7% Consi stent with the absen ce of diabe mone 5.7-6 .4% Consi stent with incre ased risk for diabe mone (pred iabet es) > or =6.5% Consi stent with diabe mone This assay resul t is consi stent with a decre ased risk of diabe mone. Curre ntly, no conse nsus exist s norris crow use of hemog lobin A1c for diagn osis of diabe mone in child nicholas. Accor ding to Ameri can Diabe mone Assoc iatio n (ADA) guide lines , hemog lobin A1c <7.0% repre sents optim al contr ol in non-p regna nt diabe tic patie nts. Diffe rent metri cs may apply to speci fic patie nt popul ation s. Stand ards of Medic al Care in Diabe mone(A DA). Not Available [address] [address] [place], [address], 08/13/2023 08:33:55 08/12/2008/13/2023 HEPAT IC FUNCT ION PANEL protein, total 6.6 g/dL 6.1-8. 1 normal Not Available [address] [address] [place], [address], 08/13/2023 08:33:56 08/12/2008/13/2023 HEPAT IC FUNCT ION PANEL albumin 4.1 g/dL 3.6-5. 1 normal Not Available [facility] [address] [address] [place], [address], 08/13/2023 08:33:56 08/12/20 23 08/13/2023 HEPAT IC FUNCT ION PANEL globulin 2.5 g/dL_ (calc ) 1.9-3. 7 normal Not Available [address] [address] [place], [address], 08/13/2023 08:33:56 08/12/2008/13/2023 HEPAT IC FUNCT ION PANEL albumin/glob ulin ratio 1.6 (calc ) 1.0-2. 5 normal Not Available [address], [address], 08/13/2023 08:33:56 08/12/2008/13/2023 HEPAT IC FUNCT ION PANEL bilirubin, total 0.7 mg/dL 0.2-1. 2 normal Not Available [address], [address], 08/13/2023 08:33:56 08/12/2008/13/2023 HEPAT IC FUNCT ION PANEL bilirubin, direct 0.1 mg/dL < or = 0.2 normal Not Available [address] [address] [place], [address], 08/13/2023 08:33:56 08/12/2008/13/2023 HEPAT IC FUNCT ION PANEL bilirubin, indirect 0.6 mg/dL _(fanny c) 0.2-1. 2 normal Not Available [address] [address] [place], [address], 08/13/2023 08:33:56 08/12/2008/13/2023 HEPAT IC FUNCT ION PANEL alkaline phosphatase 94 U/L 37-153 normal Not Available [facility] [employer] [address] [address] [place], [address], 08/13/2023 08:33:56 08/12/2008/13/2023 HEPAT IC FUNCT ION PANEL AST 18 U/L 10-35 normal Not Available [address], [address], 08/13/2023 08:33:56 08/12/2008/1308/13/2023 HEPAT IC FUNCT ION PANEL ALT 11 U/L 6-29 normal Not Available [address] [address] [place], [address], 08/13/2023 08:33:56 10/14/20 23 10/15/2023 TSH TSH 0.31 mIU/L 0.40-4 .50 low Not Available [address], [address], 10/15/2023 04:32:06 10/14/20 23 10/15/2023 T4, FREE T4, free 1.4 NG/dL 0.8-1. 8 normal Not Available [address], [address], 10/15/2023 04:32:07 04/05/20 21 04/03/2021 CT, abdom en + pelvi s, w/ contr ast No observ ation record ed. [facility]. [place] [id number], [place], [address], 01/30/2023 01:13:40 06/09/20 21 06/09/2021 XR, sacro iliac joint (s) No observ ation record ed. MIGRATION. Not Available 01/30/2023 01:13:40 06/09/20 21 06/09/2021 XR, lumba r spine No observ ation record ed. MIGRATION. Not Available 01/30/2023 01:13:40 06/09/20 21 06/09/2021 XR, sacro iliac joint (s) No observ ation record ed. MIGRATION. Not Available 01/30/2023 01:13:40 06/09/20 21 06/09/2021 XR, lumba r spine No observ ation record ed. MIGRATION. Not Available 01/30/2023 01:13:40 06/09/20 21 06/09/2021 XR, chest , 2 view No observ ation record ed. MIGRATION. Not Available 01/30/2023 01:13:40 11/08/20 21 09/29/2021 CT, abdom en + pelvi s, w/ contr ast No observ ation record ed. [id number] [facility] [address] [place] [address] [address], [place], [address], 01/30/2023 01:13:40 06/08/20 22 04/26/2022 CT, abdom en + pelvi s, w/ contr ast No observ ation record ed. [id number], [place], [address], 01/30/2023 01:13:40 12/10/19 23 11/02/2022 CT, abdom en + pelvi s, w/ contr ast No observ ation record ed. [id number], [place], [address], 01/30/2023 01:13:40 03/21/20 23 03/21/2023 diagn ostic colon oscop y (PROC ) No observ ation record ed. [email or web address] Maico Rosales MD [address] [facility] [address], [place], [address], 08/14/2023 11:21:37 06/17/20 23 05/09/2023 CT, abdom en + pelvi s, w/ contr ast No observ ation record ed. [email or web address] [address], [place], [address], 08/14/2023 11:21:51 Result Notes None recorded. Problems Name Problem SNOMED Code Status Onset Date Resolution Date Notes Provider Name and Address Organization Details Recorded Time Benign essential hypertension 9790520 Active Not Available [facility] 14:55:33 Abrasion of skin of toe 107518612 Active Not Available [facility] 14:55:33 Mixed hyperlipidemi a 053313816 Active Not Available [facility] 14:55:33 Hypothyroidis m 28109357 Active Not Available [facility] 14:55:33 Bradycardia 09509270 Active Not Available [facility] 14:55:33 Impaired glucose tolerance 7998805 Active Not Available [facility] 14:55:33 Bilateral cataracts 48532050 Active Not Available [facility] 14:55:33 Occult blood detected in feces 06520571 Active 2022 Not Available [facility] 14:55:33 Diarrhea 60980172 Active 2022 Not Available [facility] 14:55:33 Contusion of forehead 113622502 Active 2022 Not Available [facility] 14:55:33 Problem Notes None recorded. 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 Not Available [facility] 01/30/2023 00:57:26 Eye Surgery completed Not Available [facility] 01/30/2023 00:57:26 Imaging Results Imaging Date Name Status LastModified by Organiz ation Details LastModified Time 11/02/2022 CT, abdomen + pelvis, w/ contrast completed [id number] [place] [address], [address], 01/30/2023 01:13:40 04/03/2021 CT, abdomen + pelvis, w/ contrast completed [id number] [place] [address], [address], 01/30/2023 01:13:40 06/09/2021 XR, sacroiliac joint(s) completed [id number] Information not available 01/30/2023 01:13:40 06/09/2021 XR, lumbar spine completed [id number] Information not available 01/30/2023 01:13:40 06/09/2021 XR, sacroiliac joint(s) completed [id number] Information not available 01/30/2023 01:13:40 06/09/2021 XR, lumbar spine completed [id number] Information not available 01/30/2023 01:13:40 06/09/2021 XR, chest, 2 view completed [id number] Information not available 01/30/2023 01:13:40 09/29/2021 CT, abdomen + pelvis, w/ contrast completed [id number] [facility] ([facility]) [address] [place] [address] [address], [address], 01/30/2023 01:13:40 04/26/2022 CT, abdomen + pelvis, w/ contrast completed [id number], [place], [address], 01/30/2023 01:13:40 03/21/2023 diagnostic colonoscopy (PROC) [email or web address] Maico Rosales MD [address] [place] [address] [address], [place], [address], 08/14/2023 11:21:37 05/09/2023 CT, abdomen + pelvis, w/ contrast completed [address], [address], 08/14/2023 11:21:51 Procedure Notes None recorded. Medical Equipment None Reported. Allergies No known drug allergies Medications Name Sig Start Date Stop Date Status Note LastModified by Organization Details LastModified Time losartan 50 mg tablet Take 1 tablet every day by oral route in the morning. active diarrhea per patient. Not Available Not Available Not Available megestrol 400 mg/10 mL (40 mg/mL) oral suspensio n 06/09 completed Not Available Not Available Not Available prednison e 10 mg tablet active Not Available Not Available Not Available atorvasta tin 20 mg tablet TAKE 1 TABLET BY MOUTH EVERY NIGHT AT BEDTIME 08/14 completed Not Available Not Available Not Available lisinopri l 20 mg tablet TAKE 2 TABLETS BY MOUTH DAILY IN THE MORNING and 1 tablet in PM 12/26 completed Not Available Not Available Not Available prednison e 20 mg tablet TAKE 2 TABLETS BY MOUTH WITH BREAKFAS T FOR 5 DAYS 02/15 completed Not Available Not Available Not Available prednison e 5 mg tablet Take 1 tablet every day by oral route with meals for 14 days. active Not Available Not Available No t Available amlodipin e 2.5 mg tablet TAKE 1 TABLET BY MOUTH EVERY DAY active Not Available Not Available No t Available amlodipin e 5 mg tablet active Not Available Not Available Not Available prochlorp erazine maleate 10 mg tablet TK 1 T PO Q 6 H PRN N active Not Available Not Available No t Available tramadol 50 mg tablet Take 1 tablet every 8 hours by oral route as needed. 02/15 completed Not Available Not Available Not Available lidocaine -prilocai ne 2.5 %-2.5 % topical cream APPLY TO PORT SITE 30 MINUTES PRIOR TO ACCESS 06/09 completed Not Available Not Available Not Available levothyro xine 75 mcg tablet TAKE 1 TABLET BY MOUTH EVERY DAY IN THE MORNING active Not Available Not Available No t Available Macrobid 100 mg capsule Take 1 capsule every 12 hours by oral route. active Not Available Not Available No t Available potassium chloride ER 20 mEq tablet,ex tended release(p art/cryst ) 06/09 completed Not Available Not Available Not Available amlodipin e 10 mg tablet active Not Available Not Available Not Available levothyro xine 50 mcg tablet TK 1 T PO D BEFORE A MEAL. 04/02 completed Not Available Not Available Not Available dexametha sone 4 mg tablet TAKE 1 TABLET BY MOUTH TWICE DAILY THE DAY BEFORE CHEMOTHE RAPY AND THE DAY OF CHEMOTHE RAPY 02/18 completed Not Available Not Available Not Available mupirocin 2 % topical ointment APPLY A SMALL AMOUNT TO THE TOE BY TOPICAL ROUTE 2 TIMES PER DAY x 5 days. active Not Available Not Available No t Available ibuprofen 600 mg tablet 02/15 completed Not Available Not Available Not Available doxycycli ne hyclate 20 mg tablet 03/22 completed Not Available Not Available Not Available benazepri l 10 mg tablet active Not Available Not Available Not Available lisinopri l 40 mg tablet take 1/2 tab po daily AM 10/05 completed Not Available Not Available Not Available metformin ER 500 mg tablet,ex tended release 24 hr TK 1 T PO QD HS active Not Available Not Available No t Available oxycodone 5 mg tablet active Not Available Not Available Not Available Restasis 0.05 % eye drops in a dropperet te active Not Available Not Available Not Available Vigamox 0.5 % eye drops 10/30 completed Not Available Not Available Not Available metformin ER 500 mg 24 hr tablet,ex tended release (gastric retention ) Take 1 tablet every day by oral route at bedtime. 08/04 completed Not Available Not Available Not Available Bystolic 10 mg tablet TAKE 1 TABLET BY MOUTH DAILY active Not Available Not Available No t Available Durezol 0.05 % eye drops 10/30 completed Not Available Not Available Not Available Bystolic 20 mg tablet Take 1 tablet every day by oral route. 2014 active Not Available Not Available Not Avai lable sodium,po tassium,m ag sulfates 17.5 gram-3.13 gram-1.6 gram oral soln MIX AND DRINK DIRECTED active Not Available Not Available No t Available Ilevro 0.3 % eye drops,glenn pension INSTILL 1 DROP INTO SURGICAL EYE QD STARTING 2 DAYS BEFORE SURGERY active Not Available Not Available No t Available Fluzone High-Dose 5349-3845 (PF) 180 mcg/0.5 mL intramusc ular syringe ADM 0.5ML IM UTD 10/30 completed Not Available Not Available Not Available [facility] COVID-19 Antigen Rapid Home Test kit DIRECTED 08/14 completed Not Available Not Available Not Available Vitals Date Recorded Body mass index (BMI) Body height Oxygen saturation Oxygen saturation in Arterial blood by Pulse oximetry Heart rate Body temperature Body weight Systolic blood pressure Diastolic blood pressure Systolic blood pressure Diastolic blood pressure Provider Name and Address Organization Details Last Updated DateTime 1 25.1 kg/m2 154.94 cm 99 % 99 % 79 /min 97.2 [degF] 31215.0 7 g 130 mm[Hg] 80 mm[Hg] 120 mm[Hg] 60 mm[Hg] Not Available [facility] 3 01:02:26 Date Recorded Body mass index (BMI) Body height Oxygen saturation Oxygen saturation in Arterial blood by Pulse oximetry Heart rate Body temperature Body weight Systolic blood pressure Diastolic blood pressure Provider Name and Address Organization Details Last Updated DateTime 1 23.7 kg/m2 154.94 cm 98 % 98 % 68 /min 97.3 [degF] 84496.7 6 g 130 mm[Hg] 90 mm[Hg] Not Available [facility] 3 01:02:26 Date Recorded Body temperature Body weight Body mass index (BMI) Body height Heart rate Oxygen saturation Oxygen saturation in Arterial blood by Pulse oximetry Systolic blood pressure Diastolic blood pressure Provider Name and Address Organization Details Last Updated DateTime 3 97.9 [degF] 25444.5 2 g 27.5 kg/m2 152.4 cm 56 /min 97 % 97 % 138 mm[Hg] 78 mm[Hg] GIANLUCA Ibarra [facility] [employer] [facility] 3 14:27:51 Date Recorded Body height Body mass index (BMI) Body weight Body temperature Heart rate Oxygen saturation Oxygen saturation in Arterial blood by Pulse oximetry Systolic blood pressure Diastolic blood pressure Provider Name and Address Organization Details Last Updated DateTime 3 152.4 cm 27.1 kg/m2 69013.3 4 g 97.2 [degF] 74 /min 96 % 96 % 162 mm[Hg] 90 mm[Hg] [facility]LUCA [facility] [employer] [facility] 3 11:02:35 Date Recorded Body height Body mass index (BMI) Body weight Body temperature Heart rate Oxygen saturation Oxygen saturation in Arterial blood by Pulse oximetry Systolic blood pressure Diastolic blood pressure Provider Name and Address Organization Details Last Updated DateTime 3 152.4 cm 28.9 kg/m2 59894.6 7 g 97.4 [degF] 71 /min 97 % 97 % 142 mm[Hg] 80 mm[Hg] GIANLUCA Ibarra [facility] [employer] [facility] 3 15:02:05 Social History Question Answer Notes LastModified by Organizat ion Details LastModified Time Tobacco Smoking Status Never Smoker Not Available [facility] 01/30/2023 00:54:34 What Is Your Level Of Alcohol Consumption? Occasional [id number] Information not available 01/30/2023 What Is Your Level Of Caffeine Consumption? Moderate [id number].[id number] Information not available 01/30/2023 How Much Tobacco Do You Chew? None MIGRATION.[id number] Information not available 01/30/2023 In The 14 Days Before Symptom Onset, Have You Had Close Contact With A Laboratory-confir med COVID-19 While That Case Was Ill? No MIGRATION.[id number] Information not available 01/30/2023 In The 14 Days Before Symptom Onset, Have You Had Close Contact With A Person Who Is Under Investigation For COVID-19 While That Person Was Ill? No MIGRATION.[id number] Information not available 01/30/2023 Are You Currently Employed? No [email or web address] Information not available 02/15/2023 What Type Of Diet Are You Following? REGULAR MIGRATION.[id number] Information not available 01/30/2023 Which Illicit Or Recreational Drugs Have You Used? None MIGRATION.[id number] Information not available 01/30/2023 Do You Or Have You Ever Used E-cigarettes Or Vape? Never Used Electronic Cigarettes MIGRATION.[id number] Information not available 01/30/2023 What Is Your Occupation? Retired MIGRATION.[id number] 7923 Information not available 01/30/2023 Have There Been Any Changes To Your Family Or Social Situation? No Information no t available 02/15/2023 Are There Any Guns Present In Your Home? Yes MIGRATION.[id number] Information not available 01/30/2023 Do You Use Insect Repellent Routinely? No [email or web address] Information not available 02/15/2023 What Was The Date Of Your Most Recent Tobacco Screening? 02/03/2021 MIGRATION.[id number] 6195 Information not available 01/30/2023 Do You Use Your Seat Belt Or Car Seat Routinely? Yes [email or web address] Information not available 02/15/2023 Do You Have Smoke And Carbon Monoxide Detectors In Your Home? Yes [email or web address] Information not available 02/15/2023 Do You Or Have You Ever Used Smokeless Tobacco? Never Used Smokeless Tobacco MIGRATION.[id number] 6541 Information not available 01/30/2023 How Much Tobacco Do You Smoke? No MIGRATION.[id number] 5949 Information not available 01/30/2023 Do You Use Any Illicit Or Recreational Drugs? No Information not available 02/15/2023 Do You Use Sunscreen Routinely? Yes [email or web address] Information not available 02/15/2023 How Many Years Have You Smoked Tobacco? 0 MIGRATION.761880 6487 Information not available 01/30/2023 Have You Recently Traveled Abroad? No Information not available 08/30/2023 Do You Have Any Dietary Restrictions? No [email or web address] Information not available 02/15/2023 Do You Or Have You Ever Used Any Other Forms Of Tobacco Or Nicotine? No [email or web address] Information not available 02/15/2023 Sex: Unknown Functional Status Question Answer Note LastModified by Organizat ion Details LastModified Time Are you able to care for yourself? Yes [email or web address] Information not available 02/15/2023 What is your exercise level? Occasional [id number].[id number] Information not available 01/30/2023 Mental Status None recorded. Family History Relationship Description Onset Age of this Age Resolved Age Notes LastModified by Organization Details LastModified Time Mother Congestive heart failure 82 [id number] Not available 01/30/2023 00:57:32 Mother Heart disease [id number] Not available 01/30/2023 00:57:32 Sister Neoplasm of pancreas 64 [id number] Not available 01/30/2023 00:57:32 Medical History Condition Response NERVE DISEASE N BLINDNESS N RHEUMATIC FEVER N KIDNEY STONES N BLADDER PROBLEMS N OTHER # 1 N POLIO N LUNG DISEASE/DISORDER N RADIATION / CHEMOTHERAPY N COPD N Other # 2 N BLOOD DISEASES N SURGERY N EAR OR HEARING PROBLEMS N MUMPS N BOWEL PROBLEMS Y DEPRESSION (INCLUDING POST ) N STROKE/TIA N ULCERS N BENIGN PROSTATIC HYPERPLASIA N MEASLES N MYOCARDIAL INFARCTION N OBESITY Y GERD/NAUSEA N ANEURYSM N URINARY/BLADDER/KIDNEY PROBLEMS N INPATIENT PSYCH CARE N CORONARY ARTERY DISEASE (CAD) N ADDICTION CONCERNS N Impotence N ENDOMETRIOSIS N USE OF BLOOD THINNERS N SKIN PROBLEMS N GASTROINTESTINAL DISORDER N PERIPHERAL VASCULAR DISEASE N MUSCLE,JOINT OR BONE PROBLEMS N GASTROINTESTINAL BLEEDING N BLOOD CLOTS N ASTHMA N CATARACTS N ERECTILE DYSFUNCTION N VARICOSITIES N GI PROBLEMS N Low Testosterone N INFERTILITY N AIDS/HIV N LIVER DISEASE N MALE HYPOGONADISM N HYPERTENSION Y Deficiency N ANXIETY DISORDER N BLOOD TRANSFUSION N ANEMIA/BLOOD DISORDER N CHRONIC EAR INFECTIONS N BRONCHITIS N TUBERCULOSIS N GLAUCOMA N DIVERTICULITIS N SLEEP APNEA N CHICKENPOX N INFECTIOUS DISEASE N PROSTATE N HEART ARRHYTHMIA N INSOMNIA N HIGH CHOLESTEROL / HYPERLIPIDEMIA Y EYE PROBLEMS Y HYPERTHYROIDISM N NEUROLOGICAL PROBLEMS N EDEMA N CHRONIC PAIN SYNDROME N HYPOTHYROIDISM N CONSTIPATION N CAROTID BLOCKAGE N BACK / NECK PROBLEMS Y HAVE YOU BEEN HOSPITALIZED OR SEEN IN [facility] IN THE PAST YEAR ? N ATHEROSCLEROSIS N BREAST PROBLEMS N DIALYSIS N ECZEMA N OSTEOPOROSIS N ARTHRITIS N NO SIGNIFICANT PAST MEDICAL HISTORY N APPENDICITIS N DIABETES, TYPE Y BAD TEETH N ENT N HEARTBURN / REFLUX N AUTISM SPECTRUM DISORDER (ASD) N HEPATITIS / LIVER DISEASE N PULMONARY DISEASE N GOUT N SLEEP DISORDER N ALZHEIMER'S DISEASE N Brain Problems N DEMENTIA N HERPES N SEIZURES/EPILEPSY N HEADACHES/MIGRAINES Y VASCULAR DISEASE N PACEMAKER N Blood Disorder N DIZZINESS N HEART DISEASE/HEART PROBLEMS N KIDNEY DISEASE N MULTIPLE SCLEROSIS N CANCER: SPECIFY N CARDIAC ARRHYTHMIA N ANESTHESIA COMPLICATIONS N ATRIAL FIBRILLATION N Gall Stones N PULMONARY EMBOLISM N AUTOIMMUNE DISEASE N Gynecological History Statement/Question Response Date of Last Mammogram Date of Last Colonoscopy 07/27/2020 Obstetrics History GPAL:G 0 P 0 0 0 0 Immunizations Vaccine Type Date Status Note Provider Nam e and Address Organization Details Recorded Time Respiratory syncytial virus (RSV) MAB, unspecified 3 completed KESHAV Larry [facility] 09/12/2023 12:23:34 influenza, unspecified formulation 3 completed KESHAV Larry [facility] 09/12/2023 12:23:45 influenza, unspecified formulation 4 completed Not Available [facility] 01/30/2023 01:12:58 influenza, unspecified formulation 9 completed Not Available [facility] 01/30/2023 01:12:58 Influenza, split virus, quadrivalent, preservative 8 completed Not Available [facility] 01/30/2023 01:12:59 influenza, unspecified formulation 7 completed Not Available [facility] 01/30/2023 01:12:59 influenza, unspecified formulation 5 completed Not Available [facility] 01/30/2023 01:12:59 Past Encounters Encounter ID Performer Location Encounter Start Date Encounter Closed Date Diagnosis/Indication Diagnosis SNOMED-CT Code Diagnosis ICD10 Code Diagnosis Note [id number] [facility] [place] [address] [place] [address] 02/03/2021 00:00:00 02/25/2021 21:35:24 [id number] [facility] [place] [address] [place] [address] 04/24/2021 00:00:00 04/28/2021 17:58:42 [id number] [facility] [place] [address], [address] [place] [address] [place] [address] 06/09/2021 00:00:00 06/26/2021 00:10:30 [id number] EMPERATRIZ Salas [facility] [place] [address], [address] [place] [address] [place] [address] 02/18/2023 13:59:58 02/18/2023 15:27:17 Occult blood detected in feces 35912620 R19.5 refer for diagnostic colonoscop y. multiple episodes of BRBPR w/diarrhea persisting . Diarrhea 43939595 R19.7 as above. Hypothyroidism 73368323 E03.9 on supplement and due for TFTs Mixed hyperlipidemia 267 665669 E78.2 on statin therapy and due for lipid panel Impaired g lucose tolerance 0306633 R73.03 diet controlled in recent year plus after cancer treatment. due for A1c Long-term drug therapy 805562528 Z79.899 routine bmp, CBC, LFT due. [id number] EMPERATRIZ Salas [facility] [place] [address] [address], [address] [place] [address] [place] [address] 08/14/2023 10:24:29 08/14/2023 11:31:04 Benign essential hypertension 1646013 I10 Start amlodipine 2.5mg daily. 160/90 today on several checks. Hypothyroidism 05841261 E03.9 TSH 14.79, T4 is 0.8. Increase dose to levothyrox ine 75mcg daily. repeat labs in Oct. Mixed hyperlipidemia 267 913444 E78.2 lipids are great off medication . Impaired g lucose tolerance 7686996 R73.03 diet controlled in recent year plus after cancer treatment. Long-term drug therapy 500350866 Z79.953 [id number] EMPERATRIZ Salas [facility] [place] [address] [facility] [address], [address] [place] [address] [place] [address] 09/02/2023 14:36:23 09/02/2023 15:23:13 Contusion of forehead 541776795 S00.83XD left forehead contusion/ abrasion healed nicely. no new orders. CT scan stable. Fall on sa me level from tripping 579354824 W01.0XXD pt tripped over rug area at [facility]. Health Concerns Section Related Observation LastModified by Organization Detai ls LastModified Time None Recorded Concern Status LastModified by Organization Details LastModified Time None Recorded Advance Directives Directive None Recorded Payers Encounter Date Sequence Insurance Name Policy Number Policy [place] Covered Member ID Villa Member ID Guarantor Name 02/18/2023 1 [place] Aubrie Pink [id number] Aubrie Pink 02/18/2023 2 [facility] CLAIMS - PLAN KT (MEDICARE SUPPLEMENT) Aubrie Pink [id number] Aubrie Pink 08/14/2023 1 [place] Aubrie Pink [id number] Aubrie Pink 08/14/2023 2 [facility] [employer] CLAIMS - PLAN KT (MEDICARE SUPPLEMENT) Aubrie Pink [id number] Aubrie Pink 09/02/2023 1 [place] Aubrie Pink [id number] Aubrie Pink 09/02/2023 2 [facility] [employer] CLAIMS - PLAN KT (MEDICARE SUPPLEMENT) Aubrie Pink [id number] Aubrie Pink Notes Date Note Type Note Provider Name and Address Organization Details Recorded Time 04/24/20 21 text/ht ml Generic HPI TemplateReported bypatient.Notes:Pt is here for a blood pressure check up, she was seeing a different doctor and bp was 140. Wanted her to check up with you Not Available [facility] [employer] [facility] 04/28/2021 17:58:42 06/09/20 21 text/ht ml Generic HPI TemplateReported bypatient.Notes:Pt is here today with c/o pain right above her buttocks, that radiates down to her legs. Did fall in her living room after tripping over a cord, hit the book case and says the inside of her chest hurts to take a deep breath Not Available [employer] [facility] 06/26/2021 00:10:30 02/19/20 text/ht ml Rectal BleedingReported bypatient.Quality:painless Severity:mild Duration:present <1 month Timing:sudden Context:occurs with bowel movement Associated Symptoms:diarrhea EMPERATRIZ Salas [address], [place] [address], [place], [address], [facility] [employer] [facility] [employer] [facility] 02/21/2023 13:45:19 08/14/20 text/ht ml HyperlipidemiaReported bypatient.Duration:chronic Control:usually well controlled; improving; at goal Compliance:compliant; compliant with diet; exercises Complications:no coronary artery disease; no peripheral artery disease; no cardiovascular diseaseHypertensionReported bypatient.Onset/Timing:better Associated Symptoms:no shortness of breath; no fatigue; no palpitations; no decline in exercise capacity; no snoringHypothyroidismReported bypatient.Onset/Timing:better Context/Risk:normal thyroid levels; no history of head or neck radiation during childhood; no history of thyroid disease; no history of hypothyroidism; no history of hyperthyroidism; no excess iron exposure;history of hypothyroidism;female gender Exercisegets exercise Associated Symptoms:no cold intolerance; no heat intolerance; no weight loss; no weight gain; no double vision; no dry eyes; no hoarseness; no difficulty swallowing; no neck masses; no deepening of the voice; no fast heart rate; no increased blood pressure; no palpitations; no chest pain; no chest tightess or pressure; no constipation; no diarrhea; no vomiting; no decreased appetite; no loose stools; no irregular menstrual periods; no excessive sweating; no joint pain; no numbness; no tingling of the hands or feet; no dry skin; no tremor; no nervousness; no anxiety; no depression; no fatigue; no sleep difficulties; no skin changes; no hair changes 6 mo f/upt c/o diarrhea for the past two weeks EMPERATRIZ Salas [address], [place] [address], [place], [address], [employer] [facility] [employer] [facility] 08/31/2023 00:23:12 09/02/20 23 text/ht ml pt here for ER f/u from a fall on 08/26. pt fell [place] and hit her head. head CT was normal. Pt feels fine and had no complaints then or now. she did not have LOC. she tripped over rug edge or bump of rugh she thinks . fell forward into a wall. Notes from ER reviewed. EMPERATRIZ Salas [address] [facility], [facility] [address], [place], [address], [place] [facility] 09/30/2023 20:31:39 OBGyn Episode No OBEpisode recorded.
--- OUTSIDE RECORDS SUMMARY | 2025-03-15 09:40 | XMS_ITS | Referral Summary ---
Author Organization [facility] Address [address] [place] [address] Care Team Providers Care Hog Room Supervisor Name Role Phone Anupama Marcelo Primary Care Pr ovider Raine Sam MD Unavailable [phone] Allergies No known active allergies Medications lisinopriL (PRINIVIL,ZESTR [place]) 40 mg tabletIndicatio ns:hypertension Take 40 mg by mouth 2 (two) times a day Active levothyroxine (SYNTHROID) 75 mcg tabletIndicatio ns:hypothyroidi sm Take 75 mcg by mouth socket puller before breakfast Active amLODIPine (NORVASC) 2.5 mg tabletIndicatio ns:hypertension Take 2.5 mg by mouth socket puller before breakfast Active atorvastatin (LIPITOR) 20 mg [...] (05/16/2020): Added automatically from request for surgery [id number] Social History Tobacco Use Types Packs/Day Years [...] on file Sexual Orientation Not on file Last Filed Vital Signs Vital Sign Reading [...] Plan of Treatment Not on file Insurance [facility] Member Subscriber Plan / Payer (Ef fective 2019-Present) Name:EjMargaret huntery Relation to Subscriber:Self Name:Aubrie Pink Payer ID:[id number] Group ID:Not on file Type:[employer] Address: [facility] [address] [place] [address] MEDICARE Advance Directives For more information, please contact: [phone] * Full Code (Latest Code Status on File) Date Activated Date Inactivated Comments 06/21/2020 6:20 PM 06/22/2020 9:41 PM Care Teams Hog Room Supervisor Relationship Specialty Start Date End Date Anupama Marcelo PA PCP - General Physician Forklift Technician 04/29/20 Raine Sam MD Obstetrics and Gynecology 04/29/20
--- OUTSIDE RECORDS SUMMARY | 2025-03-15 09:40 | XMS_ITS | Data Portability ---
Author Organization QUAN Elvia BOOEKR Address [address] [facility] [place] [address] Care Team Providers Care Nutrient Management Specialist Name Role Phone HEMA KO Primary Care Provider Unavailab le Assessment Encounter Date Assessment Date Assessment LastModified by Organization Details LastModified Time 09/15/2024 09/15/2024 [facility] 10/03/2024 21:46:03 02/17/2025 02/17/2025 Follow-up scheduled for January Not available 02/17/2025 14:52:37 Plan of Treatment Reminders Order Date Submit Date Provider Last Modified By Organization Details Last Modified Time Details Appointments ANY 15 2024 02:00P EMPERATRIZ Marrero Not available Not available Not available Lab HbA1c (hemoglob in A1c), blood 2024 025 JACE [facility], [address], [place], [address], 03/10/2025 04:23:32 CBC w/ auto diff 2024 025 [email or web address] [facility], [address], [place], [address], 02/17/2025 15:06:06 BMP, serum or plasma 2024 025 [email or web address] [facility], [address], [place], [address], 02/17/2025 15:06:06 hepatic function panel, serum 2024 025 [email or web address] [facility], [address], [address], [place], [address], 02/17/2025 15:06:06 lipid panel, serum 2024 025 JACE [facility], [address], [address], [place], [address], 03/10/2025 04:23:31 TSH + free T4, serum 2024 025 [email or web address] [facility], [address], [address], [place], [address], 02/17/2025 15:06:06 T3, free, serum or plasma 2024 025 [email or web address] [facility], [facility] [address] [facility], [address], [place], [address], 02/17/2025 15:06:06 CBC w/ auto diff 2023 024 [email or web address] [facility], [address], [address], [place], [address], 02/18/2025 10:30:08 BMP, serum or plasma 2023 024 [email or web address] [facility], [address], [address], [place], [address], 02/18/2025 10:29:58 hepatic function panel, serum 2023 024 [email or web address] [facility], [address], [place], [address], 02/18/2025 10:29:49 TSH + free T4, serum 2023 024 [facility], [address], [place], [address], 02/18/2025 10:29:39 T3, free, serum or plasma 2023 024 [email or web address] [facility], [address], [address], [place], [address], 02/18/2025 10:30:18 HbA1c (hemoglob in A1c), blood 2023 024 [facility], [address], [address], [place], [address], 07/14/2024 11:18:21 hepatic function panel, serum 2023 024 [facility], [address], [address], [place], [address], 07/14/2024 11:18:21 BMP, serum or plasma 2023 024 [facility], [facility] [address], [address], [place], [address], 07/14/2024 11:18:21 CBC w/ auto diff 2023 024 [facility], [address], [address], [place], [address], 07/14/2024 11:18:21 lipid panel, serum 2023 024 JACE [facility], [address], [address], [place], [address], 06/26/2024 09:47:05 TSH + free T4, serum 2023 024 [facility], [facility] [address], [place], [address], 06/26/2024 09:47:04 T3, free, serum or plasma 2023 024 [facility], [address], [place], [address], 07/14/2024 11:18:21 Referral None recorded. Procedures None recorded. Surgeries None recorded. Imaging None recorded. Medication Orders amlodipin e 10 mg tablet 2023 [id number], [address], [place], [id number], 09/15/2024 13:06:11 trazodone 50 mg tablet 2023 [id number], [address], [place], [id number], 02/17/2025 14:42:47 amlodipin e 5 mg tablet 2023 [facility] #[id number], [address], [place], [id number], 09/15/2024 13:04:17 Patient TargetsNo targets recorded. Patient Instructions Encounter Date Encounter Id Patient Instructions Last Modified By Organization Details Last Modified Time 06/23/2024 [id number] A healthy lifestyle: care instructions Not available 06/23/2024 12:26:48 Reason for Referral None Reported. Results Created Date Observation Date Name Description Value Unit Range Abnormal Flag Note LastModifiedBy Organization Detail LastModifiedTime Result Notes None recorded. Problems Name Problem SNOMED Code Status Onset Date Resolution Date Notes Provider Name and Address Organization Details Recorded Time Benign essential hypertensio n 2998222 Active 2023 EMPERATRIZ Salas Attn: Accountin g,[address], [place], [address], [place] [facility] 4 12:24:59 Hypothyroid ism 12150135 Active 2023 EMPERATRIZ Salas Attn: Accountin g,[address], [place], [address], [place] [facility] 4 12:25:00 Blood glucose outside reference range 560596382 Active 2023 EMPERATRIZ Salas Attn: Accountin g,[address] [facility], [place], [address], [place] [facility] 4 12:25:01 Hyperlipide brannon 89132292 Active 2023 EMPERATRIZ Salas Attn: Accountbrandi g,[address] [facility], [place], [address], [place] [facility] 4 12:25:03 Insomnia 328744375 Active 2023 EMPERATRIZ Salas Attn: Accountin g,[address] [facility], [place], [address], [place] [facility] 4 12:25:05 Body mass index 25-29 - overweight 138387352 Active 2023 EMPERATRIZ Salas Attn: Accountin g,[address] [facility], [place], [address], [place] [facility] 4 12:25:07 Long-term drug therapy Active 2023 EMPERATRIZ Salas Attn: Accountin g,[address] [facility], [place], [address], [place] [facility] 4 12:25:09 Vitamin B12 deficiency (non anemic) 92786295 Active 2023 EMPERATRIZ Salas Attn: Accountin g,[address] [place], [address], [place] [facility] 4 12:26:30 History of malignant neoplasm of uterine body 496503732 Active 2023 EMPERATRIZ Salas Attn: Accountin g,[address] [facility], [place], [address], [place] [facility] 4 12:26:31 Positive screening for depression on PHQ-9 (Patient Health Questionnai re 9) 6668256801452 00 Active 2024 EMPERATRIZ Salas Attn: Regina hayes,[address] [facility], [place], [address] 5 14:37:19 Problem Notes None recorded. Procedures Surgical History Date Name Laterality Status Provider Name and Address Organization Details Recorded Time Eye Surgery completed Alfonso hartlye MA [facility] 06/23/2024 12:53:42 Imaging Results None recorded. Procedure Notes None recorded. Medical Equipment None Reported. Allergies No known drug allergies Medications Name Sig Start Date Stop Date Status Note LastModified by Organization Details LastModified Time trazodone 50 mg tablet TAKE 1 TABLET BY MOUTH EVERY DAY AT BEDTIME 02/17 completed Not Available Not Available Not Available amlodipine 2.5 mg tablet TAKE 1 TABLET BY MOUTH EVERY DAY 09/15 completed Not Available Not Available Not Available amlodipine 5 mg tablet TAKE 1 TABLET BY MOUTH DAILY. DISCONTIN UE 2.5 MG DOSE 09/15 completed Not Available Not Available Not Available levothyroxi ne 75 mcg tablet TAKE 1 TABLET BY MOUTH EVERY DAY IN THE MORNING 06/26 completed Not Available Not Available Not Available amlodipine 10 mg tablet TAKE 1 TABLET BY MOUTH EVERY DAY active Not Available Not Available No t Available levothyroxi ne 50 mcg tablet TAKE 1 TABLET BY MOUTH EVERY MORNING. DISCONTIN UE 75 MCG DOSE active Not Available Not Available No t Available Paxlovid 300 mg (150 mg x 2)-100 mg tablets in a dose pack TAKE 3 TABLETS BY MOUTH TWICE DAILY 02/17 completed Not Available Not Available Not Available Vitals Date Recorded Body weight Respiratory rate Body mass index (BMI) Body height Oxygen saturation Oxygen saturation in Arterial blood by Pulse oximetry Heart rate Systolic blood pressure Diastolic blood pressure Provider Name and Address Organization Details Last Updated DateTime 4 01349.4 2 g 20 /min 25.2 kg/m2 152.4 cm 97 % 97 % 67 /min 140 mm[Hg] 82 mm[Hg] Alfonso Butterfield MA [facility] 4 12:03:09 Date Recorded Systolic blood pressure Diastolic blood pressure Provider Name and Address Organization Details Last Updated DateTime 06/23/2024 150 mm[Hg] 80 mm[Hg] EMPERATRIZ Salas Attn: Accounting,[address] [place], [address], [facility] 06/23/2024 12:21:13 Date Recorded Body height Body mass index (BMI) Body weight Respiratory rate Oxygen saturation Oxygen saturation in Arterial blood by Pulse oximetry Heart rate Systolic blood pressure Diastolic blood pressure Provider Name and Address Organization Details Last Updated DateTime 4 152.4 cm 26 kg/m2 87761.8 6 g 20 /min 98 % 98 % 60 /min 148 mm[Hg] 70 mm[Hg] Alfonso Butterfield MA [facility] 4 12:46:58 Date Recorded Systolic blood pressure Diastolic blood pressure Provider Name and Address Organization Details Last Updated DateTime 09/15/2024 160 mm[Hg] 70 mm[Hg] EMPERATRIZ Salas Attn: Accounting,[address] [place], [address], [facility] 10/03/2024 21:44:26 Date Recorded Body height Oxygen saturation Oxygen saturation in Arterial blood by Pulse oximetry Heart rate Body mass index (BMI) Body weight Systolic blood pressure Diastolic blood pressure Provider Name and Address Organization Details Last Updated DateTime 5 152.4 cm 97 % 97 % 61 /min 26 kg/m2 55355.7 9 g 142 mm[Hg] 72 mm[Hg] Alfonso Butterfield MA [facility] 5 14:46:54 Date Recorded Systolic blood pressure Diastolic blood pressure Provider Name and Address Organization Details Last Updated DateTime 02/17/2025 140 mm[Hg] 70 mm[Hg] EMPERATRIZ Salas Attn: Accounting[address] [place], [address], [facility] 02/17/2025 15:11:44 Social History Question Answer Notes LastModified by Organizat ion Details LastModified Time Tobacco Smoking Status Never Smoker Alfonso Butterfield MA null, [facility] 06/23/2024 12:06:55 Do You Have An Advance Directive? Yes Will Information not available 09/15/2024 What Is Your Level Of Alcohol Consumption? None Former Information not available 06/23/2024 Are You Blind Or Do You Have Difficulty Seeing? No Information not available 06/23/2024 What Is Your Level Of Caffeine Consumption? Occasional Information not available 06/23/2024 In The 14 Days Before Symptom Onset, Have You Had Close Contact With A Laboratory-confir med COVID-19 While That Case Was Ill? No Information not available 06/22/2024 In The 14 Days Before Symptom Onset, Have You Had Close Contact With A Person Who Is Under Investigation For COVID-19 While That Person Was Ill? No Information not available 06/22/2024 Have You Been To An Area Known To Be High Risk For COVID-19? No Information not available 06/22/2024 Are You Deaf Or Do You Have Serious Difficulty Hearing? No Information not available 06/23/2024 What Type Of Diet Are You Following? REGULAR Information not available 06/23/2024 Are There Any Guns Present In Your Home? No Information not available 06/23/2024 What Was The Date Of Your Most Recent Tobacco Screening? 02/17/2025 Information not available 02/17/2025 Do You Use Your Seat Belt Or Car Seat Routinely? Yes Information not available 06/22/2024 Do You Have Smoke And Carbon Monoxide Detectors In Your Home? Yes Information not available 06/22/2024 Do You Feel Stressed (tense, Restless, Nervous, Or Anxious, Or Unable To Sleep At Night)? [id number] Information not available 09/15/2024 Do You Use Any Illicit Or Recreational Drugs? No Information not available 06/23/2024 Do You Use Sunscreen Routinely? No Information not available 06/23/2024 Has Tobacco Cessation Counseling Been Provided? Yes Information not available 06/22/2024 On What Date Was Tobacco Cessation Counseling Provided? 02/17/2025 Information not available 02/17/2025 Do You Or Have You Ever Used Any Other Forms Of Tobacco Or Nicotine? No Information not available 06/23/2024 Sex: Female Functional Status Question Answer Note LastModified by Organization D etails LastModified Time Are you able to care for yourself? Yes Information n ot available 06/22/2024 What is your exercise level? None Information not available 06/23/2024 Mental Status None recorded. Family History Relationship Description Onset Age of this Age Resolved Age Notes LastModified by Organization Details LastModified Time Sister Diabetes mellitus tcarterma Not available 2023 12:53:52 Sister Disorder of thyroid gland tcarterma Not available 2023 12:53:57 Sister Hypertensive disorder tcarterma Not available 2023 12:54:03 Medical History Condition Response High Blood Pressure Y Cancer Y Thyroid Problems Y Gynecological History Statement/Question Response Menses Monthly N Current Control Method Other Obstetrics History GPAL:G 0 P 0 0 0 0 Immunizations Vaccine Type Date Status Note Provider Nam e and Address Organization Details Recorded Time Influenza, high-dose, quadrivalent, PF 09/15/2022 completed Alfonso Butter[place], [place] [facility] 09/15/2024 12:44:10 Influenza, adjuvanted, quadrivalent, PF 09/03/2023 completed Alfonso [place] [facility] 09/15/2024 12:44:10 COVID-19, mRNA, LNP-S, PF, 30 mcg/0.3 mL dose 01/28/2021 completed Alfonso [place] [facility] 09/15/2024 12:44:10 COVID-19, mRNA, LNP-S, PF, 30 mcg/0.3 mL dose 02/25/2021 completed Alfonso [place] [facility] 09/15/2024 12:44:10 COVID-19, mRNA, LNP-S, PF, 30 mcg/0.3 mL dose 07/18/2021 completed Alfonso [place] [facility] 09/15/2024 12:44:10 COVID-19, mRNA, LNP-S, PF, 30 mcg/0.3 mL dose, kenny-sucrose 03/16/2022 completed Alfonso Butter[place] [facility] 09/15/2024 12:44:10 COVID-19, mRNA, LNP-S, bivalent, PF, 30 mcg/0.3 mL dose 09/15/2022 completed Alfonso [place] [facility] 09/15/2024 12:44:10 RSV, bivalent, protein subunit RSVpreF, diluent reconstituted, 0.5 mL, PF 09/03/2023 completed Alfonso [place] [facility] 09/15/2024 12:44:10 Tdap 08/23/2023 completed Alfonso [place] [facility] 09/15/2024 12:44:10 Influenza, high-dose, trivalent, PF 09/22/2017 [place] RENEE [place] [facility] 09/15/2024 12:44:10 Influenza, high-dose, trivalent, PF 09/15/2024 completed EMPERATRIZ Salas Attn: Accounting,[address] [place], [address], [facility] 10/03/2024 21:45:31 Past Encounters Encounter ID Performer Location Encounter Start Date Encounter Closed Date Diagnosis/Indication Diagnosis SNOMED-CT Code Diagnosis ICD10 Code Diagnosis Note [id number] EMPERATRIZ Salas [facility] [place] [address] [place] [address] 06/23/2024 11:34:51 06/23/2024 12:39:43 Body mass index 25-29 - overweight 036594496 Z68.25 BMI is 25.2 Overweight 036882474 E66 .3 Benign ess ential hypertension 0480335 I10 Blood pressure is elevated today at 150/80, boost amlodipine to 5mg daily. BP is elevated today 160/80. Hypothyroidism 01166501 E03.9 Continue levothyrox ine 50 mcg daily and due for updated thyroid labs Blood gluc ose outside reference range 691710293 R73.09 Patient has a history of prediabete s present and is due for updated A1c Long-term drug therapy 088250017 Z79.899 Routine liver function, basic metabolic panel and CBC are due Hyperlipidemia 45917868 E78.5 Fasting lipid panel is due Insomnia 905850164 G47.0 0 Trial of trazodone 50 mg p.o. q.h.s. Vitamin B1 2 deficiency (non anemic) 72371904 E53.8 she gets monthly b12 shots from Dr. Lopez office. History of malignant neoplasm of uterine body 204021483 Z85.42 History noted. She is following with oncology routinely [id number] EMPERATRIZ Salas [facility] [employer] [address] [place] [address] 09/15/2024 11:57:31 09/15/2024 13:08:50 Benign essential hypertension 7748883 I10 Boost to amlodipine 10mg daily. bp still above range today 160/70 range. Hypothyroidism 74686511 E03.9 now on lower dosing levothyrox ine 50mcg daily. Due for thyroid function panel Insomnia 152752558 G47.0 0 Trial of trazodone 50 mg p.o. q.h.s.. This prescripti on was given at the last office visit and she does have it at home but has not tried it yet. Encouraged her to try the low-dose trazodone Long-term drug therapy 931656083 Z79.899 Routine liver function, basic metabolic panel and CBC are due Administra tion of influenza vaccine 99149343 Z23 Flu shot administer ed today [id number] EMPERATRIZ Salas [facility] [address] [place] [address] 02/17/2025 14:19:00 02/17/2025 15:25:14 Benign essential hypertension 0840873 I10 Improved on amlodipine 10mg daily. Blood pressure is 140/70 today Hyperlipidemia 97269341 E78.5 Fasting lipid panel is due. At age 85 not on any statin therapy now Hypothyroidism 33146361 E03.9 now on lower dosing levothyrox ine 50mcg daily. Due for thyroid function panel Insomnia 647347487 G47.0 0 Trial of trazodone 50 mg p.o. q.h.s.. This prescripti on was given at the last office visit and she does have it at home but has not tried it yet. Encouraged her to try the low-dose trazodone History of malignant neoplasm of uterine body 537184042 Z85.42 History noted. She is following with oncology routinely Long-term drug therapy 887028625 Z79.899 Routine liver function, basic metabolic panel and CBC are due Blood gluc ose outside reference range 935574601 R73.09 Patient has a history of prediabete s present and is due for updated A1c Positive s creening for depression on PHQ-9 (Patient Health Questionnaire 9) 7828501790 70905 Z13.31 Patient scored a 6 on screening today which is more revolved around her fatigue. She has no acute concerns with any anxiety or depression Health Concerns Section Related Observation LastModified by Organization Detai ls LastModified Time None Recorded Concern Status LastModified by Organization Details LastModified Time None Recorded Advance Directives Directive Y: will Payers Encounter Date Sequence Insurance Name Policy Number Policy Villa Covered Member ID Villa Member ID Guarantor Name 06/23/2024 1 [place] Aubrie Pink [id number] Aubrie Pink 06/23/2024 2 [employer] (MEDICARE SUPPLEMENT) Aubrie Pink [id number] Aubrie Pink 09/15/2024 2 [employer]IONS (MEDICARE SUPPLEMENT) Aubrie Pink [id number] Aubrie Pink 09/15/2024 MED[place] - RHC - FQHC Aubrie Pink [id number] Aubrie Pink 02/17/2025 1 [place] Aubrie Pink [id number] Aubrie Pink 02/17/2025 2 [employer] OPTIONS (MEDICARE SUPPLEMENT) Aubrie Pink [id number] Aubrie Pink Notes Date Note Type Note Provider Name and Address Organization Details Recorded Time 4 text/htm l HyperlipidemiaReported bypatient.Notes:Patient is with history of hyperlipidemia but she is not taking any statin therapy at this time as this was stopped when she was on chemotherapy and had significant weight lossHypertensionReported bypatient.Notes:Patient is on amlodipine 2.5 mg daily at this time but she does have blood pressure elevation noted todayInsomniaReported bypatient.Notes:Patient has insomnia complaints that continue to be 1 of her biggest complaints. She would potentially entertain some type of medication to help herThyroidReported bypatient.Notes:Patient is taking levothyroxine 50 mcg daily and is due for updated labs Patient has a history of uterine cancer and is in remission and following with oncology routinely. EMPERATRIZ Salas Attn: Accounting,[address] [facility], [place], [address], [facility] 07/01/2024 23:33:40 4 text/htm l HyperlipidemiaReported bypatient.Notes:Patient is with history of hyperlipidemia but she is not taking any statin therapy at this time as this was stopped when she was on chemotherapy and had significant weight lossHypertensionReported bypatient.Notes:Patient is on amlodipine 5 mg daily at this time but she does have blood pressure elevation noted todayInsomniaReported bypatient.Notes:Patient has insomnia complaints that continue to be 1 of her biggest complaints. She would potentially entertain some type of medication to help herThyroidReported bypatient.Notes:Patient is taking levothyroxine 50 mcg daily and is due for updated labs Patient has a history of uterine cancer and is in remission and following with oncology routinely. EMPERATRIZ Salas Attn: Accounting,[address] [facility], [place], [address], [place] [facility] 10/03/2024 21:46:34 5 text/htm l HyperlipidemiaReported bypatient.Notes:Patient is with history of hyperlipidemia but she is not taking any statin therapy at this time as this was stopped when she was on chemotherapy and had significant weight lossHypertensionReported bypatient.Notes:Patient is on amlodipine 5 mg daily at this time but she does have blood pressure elevation noted todayInsomniaReported bypatient.Notes:Patient has insomnia complaints that continue to be 1 of her biggest complaints. She would potentially entertain some type of medication to help herThyroidReported bypatient.Notes:Patient is taking levothyroxine 50 mcg daily and is due for updated labs Patient has a history of uterine cancer and is in remission and following with oncology routinely. EMPERATRIZ Salas Attn: Accounting,[address] [facility], [place], [address], [place] [facility] 2025 14:37:34 OBGyn Episode No OBEpisode recorded.
--- OUTSIDE RECORDS SUMMARY | 2025-03-15 09:40 | XMS_ITS | Encounter Summary ---
Author Organization [facility] Address [address] [place] [address] Care Team Providers Care Care Giver Name Role Phone Anupama Marcelo EMPERATRIZ Primary Care Provider [phone] Encounter Details Date Type Department Care Team (Late Contact Info) Description 07/20/2020 Chart Note [facility] Radiation Therapy [address] [place] [address] [place] [address] [place] [address] Social History Tobacco Use Types Packs/Day Years Used Date Smoking Tobacco: Never Smokeless Tobacco: Never Alcohol Use Standard Drinks/Week Comments Not Currently 0 (1 standard drink = 0.6 oz pur e alcohol) Comments No Sex and Gender Information Value Date Recorded Sex Assigned at Not on file Legal Sex Female 1:07 PM CDT Gender Identity Not on file Sexual Orientation Not on file COVID-19 Exposure Response Date Recorded In the last month, have you been in contact with someone who was confirmed or suspected to have Coronavirus / COVID-19? No / Unsure 07/19/2020 10:55 AM CDT documented as of this encounter Plan of Treatment Upcoming Encounters Date Type Department Care Team (Late Contact Info) Description 03/22/2025 10:00 AM CDT Office Visit [facility] Oncology and Hematology - [place] [address] [place] [address] Jeana Malik MD [address] [place] [address] documented as of this encounter Visit Diagnoses Not on filedocumented in this encounter Care Teams Care Giver Relationship Specialty Start Date End Date Anupama Marcelo PA PCP - General Physician Dance Coach 07/08/20 documented as of this encounter
--- OUTSIDE RECORDS SUMMARY | 2025-03-15 09:41 | XMS_ITS | CONTINUITY OF CARE DOCUMENT ---
Author Name ammy gimenez Address Unknown Organization [facility] Address [address] [place] [address] Phone [phone] Care Team Providers Care Programmer Engineering [employer] Name Role Phone Darwin Rosales MD Unavailable [phone] [employer] Unavailable [employer] Unavailable [phone] INSURANCE PROVIDERS Payer name Policy type / Coverage type [place] [employer] party ID A[employer] insurance company [id number] [place] MEDICARE Medicare [id number]
--- OUTSIDE RECORDS SUMMARY | 2025-03-15 09:42 | XMS_ITS | Clinical Summary ---
Author Organization [facility] Address [address] [place] [address] Care Team Providers Care Underwriting Intern Name Role Phone Anupama Marcelo Primary Care Provider [phone] Allergies No known active allergies Medications levothyroxine 75 mcg tablet Take 50 mcg by mouth daily. 07/04/2020 Active amLODIPine (NORVASC) 2.5 mg tablet Take 10 mg by mouth daily. 08/14/2023 Active Active Problems Problem Noted Date Diagnosed Date Other dietary vitamin B12 deficiency anemia 04/01 Endometrial cancer 07/28/2020 Encounters Date Type Department Care Team Description 02/17/2025 External Device Data [facility] ABSTRACTION Provider, Abstract 02/17/2025 External Device Data [facility] ABSTRACTION Provider, Abstract 02/06/2025 External Device Data [facility]STRA[facility] Provider, Abstract 02/05/2025 External Device Data [facility]STRACTION Provider, Abstract 01/19/2025 External Device Data [facility] ABSTRACTION Provider, Abstract 12/29/2024 External Device Data [facility] ABSTRACTION Provider, Abstract from Last 3 Months Family History Medical History Relation Name Comments Cancer Brother 2 Cancer Father Cancer Sister 2 Relation Name Status Comments Brother 1 Alive Brother 2 Alive Father Mother Alive Sister 1 Alive Sister 2 Alive Sister 3 Alive Sister 4 Sister 5 Social History Tobacco Use Types Packs/Day Years Used Date Smoking Tobacco: Never Smokeless Tobacco: Never Tobacco Cessation:Counseling Given: Not Answered Alcohol Use Standard Drinks/Week Comments Not Currently 0 (1 standard drink = 0.6 oz pur e alcohol) Comments No Sex and Gender Information Value Date Recorded Sex Assigned at Not on file Legal Sex Female 1:07 PM CDT Gender Identity Not on file Sexual Orientation Not on file Last Filed Vital Signs Vital Sign Reading Time Taken Comments Blood Pressure 150/72 09/25/2024 9:29 AM CDT Pulse 59 09/25/2024 9:29 AM CDT Temperature 36.4 C (97.5 F) 09/25/2024 9:29 AM CDT Respiratory Rate 18 09/25/2024 9:29 AM CDT Oxygen Saturation 96% 09/25/2024 9:29 AM CDT Inhaled Oxygen Concentration - - Weight 59.4 kg (131 lb) 09/25/2024 9:29 AM CDT Height 154.9 cm (5' 1 ) 08/17/2022 11:07 AM CDT Body Mass Index 24.75 08/17/2022 11:07 AM CDT Plan of Treatment Upcoming Encounters Date Type Department Care Team (Late st Contact Info) Description 03/22/2025 10:00 AM CDT Office Visit [facility] Oncology and Hematology [facility] [address] [place] [address] Jeana Malik MD [address] [place] [address] Health Maintenance Due Date Last Done Comments DTAP/TDAP/TD VACCINES (1 - Tdap) 1959 Traditional Medicare (ACO) A nnual Wellness Visit 1959 PNEUMOCOCCAL VACCINE 50+ YEA RS (1 of 1 - PCV) 1990 ZOSTER VACCINE (1 of 2) 1990 OSTEOPOROSIS SCREENING 2005 RSV VACCINE (60+ or ) (1 - 1-dose 75+ series) 2015 INFLUENZA VACCINE (#1) 2024 08/02/2018 COLORECTAL SCREENING Discontinued 03/21/2023, 07/27/2020, 07/27/2020 Colorectal Cancer Screening Discontinued FIT-DNA Q 3 years Discontinued FIT/FOBT Q 1 year Discontinued Flex Sig/CT Colonography Q 5 years Discontinued Insurance [place] [id number] MEDICARE PART A AND B [facility] [id number] Care Teams Underwriting Intern Relationship Specialty Start Date End Date Anupama Marcelo PA PCP - General Physician Eligibility Technician 07/08/20
== END 2025-03-15 09:05 | disposition home or self-care (01) ==
PROVIDERS: PCP Physician Assistant; Visit Provider Internal Medicine Hematology & Oncology
DX: C54.1 Malignant neoplasm of endometrium (principal); K40.90 Unilateral inguinal hernia, without obstruction or gangrene, not specified as recurrent; K80.20 Calculus of gallbladder without cholecystitis without obstruction
CPT/HCPCS: 74177; Q9967